=== PATIENT | female | born 1960 | race Two or more races ===

== ENCOUNTER → 2017-08-29 10:18 | Outpatient (CLI) | payer MEDICAID, SELFPAY ==
--- NOTE | 2017-08-29 10:21 | NM_ITS ---
HEPATOBILIARY SCAN WITH FATTY MEAL/ENSURE ORDERING PHYSICIAN : Cirilo Carbajal MD PATIENT AGE: 57 years GENDER: Female HISTORY: Right upper quadrant pain and nausea Following 8.02 millicuries Tc Choletec, images of the RUQ were obtained. There is prompt uptake of radionuclide by the liver which is grossly unremarkable. Activity seen outlining common duct with Activity activity throughout duodenum into small bowel evident.. This initial portion of the study is normal.. The patient then was given CCK IV total of 1.7 MCG via infusion pump over 30 minutes. The gallbladder was allowed to fill imaging over 30 as well... The obtain data was analyzed and reveals a 4% gallbladder ejection fraction (normal greater than 50%; borderline 35-50%). Severely low abnormal ejection fraction suggesting cholecystitis, & biliary dyskinesia. Visual inspection supports abnormal low ejection fraction . IMPRESSION: Abnormal functioning gallbladder 4% % gallbladder ejection fraction by computer analysis.. Severe decreased ejection fraction compatible with cholecystitis,/ biliary dyskinesia Patient experienced Moderate pain and spasms with CCK administration
== END ==
PROVIDERS: Family Provider Nurse Practitioner; PCP Nurse Practitioner; Visit Provider Surgery
DX: R10.11 Right upper quadrant pain (principal)
CPT/HCPCS: 78227; A9537; J2805

== ENCOUNTER → 2017-09-05 10:15 | Outpatient (CLI) | payer MEDICAID, SELFPAY ==
[2017-09-05 10:50] LABS: Basophils % 0.6 % (0.1-2.0); Eosinophils # 0.2 K/mm3 (0.0-0.4); Eosinophils % 2.4 % (0.1-12.0); Hematocrit 40.3 % (37.0-47.0); Hemoglobin 13.1 g/dL (12.2-16.2); Lymphocytes # 2.4 K/mm3 (0.7-4.5); Lymphocytes % 38.2 K/mm3 (10-50); Mean Corpuscular HGB Conc 32.6 g/dL (31.8-35.4); Mean Corpuscular Hemoglobin 27.2 pg (27.0-31.2); Mean Corpuscular Volume 83.6 fl (81-99); Mean Platelet Volume 6.8 fl (7.4-10.4); Monocytes # 0.3 K/mm3 (0.1-1.0); Monocytes % 4.6 % (1.7-9.3); Neutrophils # 3.5 K/mm3 (1.8-7.8); Neutrophils % 54.1 % (37.0-80.0); Platelet Count 323 K/mm3 (142-424); Red Blood Count 4.82 M/mm3 (4.20-5.40); Red Cell Distribution Width 13.4 % (11.5-17.5); White Blood Count 6.4 K/mm3 (4.8-10.8)
[2017-09-05 11:37] LABS: Alanine Aminotransferase 30 U/L (12-78); Albumin Level 3.9 gm/dL (3.4-5.0); Albumin/Globulin Ratio 1.1 (1.1-1.8); Alkaline Phosphatase 72 U/L (46-116); Anion Gap 11.7 mEq/L (5-15); Aspartate Amino Transferase 25 U/L (15-37); Bilirubin,Total 0.5 mg/dL (0.2-1.0); Blood Urea Nitrogen 10 mg/dL (7-18); Calcium 9.2 mg/dL (8.5-10.1); Carbon Dioxide 31 mmol/L (21.0-32.0); Chloride 107 mmol/L (98-107); Creatinine,Serum 0.77 mg/dL (0.55-1.02); Estimated Glomerular Filt Rate 77 ml/min (>60); GFR (African American) 93 ML/MIN (>60); Globulin 3.4 gm/dl (1.3-3.2); Glucose 99 mg/dL (74-106); Potassium 4.7 mmoL/L (3.5-5.1); Sodium 145 mmol/L (136-145); Total Protein,Serum 7.3 gm/dL (6.4-8.2)
== END ==
PROVIDERS: PCP Surgery; Visit Provider Surgery
DX: K81.1 Chronic cholecystitis (principal); Z01.818 Encounter for other preprocedural examination
CPT/HCPCS: 36415; 80053; 85025

== ENCOUNTER 2017-09-07 05:58 | Day surgery (SDC) | payer MEDICAID, SELFPAY ==
[2017-09-05 11:08] VITALS: BMI 33.8
[2017-09-07] VITALS (17 sets, daily range): BP systolic 116–191; BP diastolic 68–100; PULSE 56–98; RESP 16–18; TEMP 36.1–36.7; O2SAT 94–100
--- NOTE | 2017-09-07 07:25 | P.PN_ITS ---
[facility] Anesthesia Checklist - Patient Identification Patient Identification: Arm Band, Family - Structural Data Admitted From: Home Planned Operative Procedure/s: lap choly Consent for Planned Operative Procedure(s) Verified: Yes Verified Documents: Surgical Consent - Chart Verification Results Verified: CBC, BMP - Additional verifications Patient : No Anesthesia Reactions: No Hx Blood Transfusions: No Blood Transfusion Reaction: No Cephalosporin Allergy: No Previous Colonoscopy: No - Cardiovascular Assessment Heart Sounds: S1 & S2 Pulse Strength: Baseline Pulse Rhythm: Regular Peripheral Edema: No - Airway Assessment C-Spine Mobility Assessed: Yes TMJ Mobility Assessed: Yes Dentition: Good Dentition - Neurological Assessment Level of Consciousness: Awake, Alert, Appropriate Hx Seizures: No Numbness or tingling in extremities: No - Genitourinary Assessment 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 - Anesthesia Plan Anesthesia Risk discussed: Yes Anesthesia Plan: Verified ASA Class: II Anesthesia Type: General [facility] Anesthesia HX I have reviewed the patient's past medical history: Yes Medical History: Reports:: Gall Bladder Disease, Hypertension Denies:: Cancer, Diabetes Mellitus Type 1, Diabetes Mellitus Type 2, MRSA, Seizures Other Medical History: Denies: Blood Transfusion Reaction Other Surgeries: Yes: Hysterectomy-Total, Hysterectomy-Partial Amputation: No Fractures: No *Family Hx:: Cancer, Coronary Artery Disease, Diabetes, Heart Attack, Hypertension
--- NOTE | 2017-09-07 08:39 | HMH.OPNOTE ---
Date of procedure: 09/07/17 Pre-op Diagnosis:: Chronic cholecystitis Post-op diagnosis:: same Procedure performed:: Laparoscopic cholecystectomy Surgeon:: Cirilo Carbajal MD DO ALL OPERATOR:: Jamie Duong Anesthesia: GETA Estimated blood loss (mL): 25 Clinical Note:: Patient is a 57-year-old female who states no Pashto. She was originally sent for surgical consultation for possible gallbladder. Patient had been having some right lower abdominal pain and underwent CT scan which was suggestive of gallstones. She had gallbladder ultrasound which revealed no gallstones but was sent for surgical consultation. History is been difficult to obtain however when she was seen for surgical consultation at that time she was complaining of pain in the right upper quadrant. It was characterized as somewhat colicky and worse postprandially. I had her undergo HIDA scan which revealed an ejection fraction of 4% with CCK. The options were discussed and she wished to pursue cholecystectomy. Operative findings:: She had a distended slightly thickened gallbladder with omental adhesions to the gallbladder Operative note:: Consent was obtained and patient was taken to the operating room. She was given preoperative intravenous antibiotics. She was positioned in a supine position. General anesthesia was induced via endotracheal tube. Abdomen was prepped and draped in the standard surgical fashion. Subumbilical skin incision was made and while performing abdominal wall lift Veress needle was inserted. CO2 pneumoperitoneum was achieved 15 mmHg. 10/11 mm optical trocar was inserted at the umbilicus. Intraperitoneal contents were visualized. She was positioned in reverse Trendelenburg with left side down. A couple of 5 mm trochars were inserted in the right upper abdomen. 10 mm trocar was inserted in the epigastrium. Gallbladder was grasped and retracted anteriorly over the dome of the liver. There were omental adhesions to the gallbladder and these were taken down using blunt dissection. Infundibulum/Espinal's pouch of the gallbladder was retracted anteriorly and laterally. There is fatty infiltration around the gallbladder. Blunt dissection was carried out dissecting free the cystic duct and cystic artery. Cystic duct was multiply clipped and then divided. Cystic artery was carefully coagulated with a's ultrasonic harmonic sarah and then divided. Gallbladder was dissected free from the liver in a retrograde fashion using Alexandru ultrasonic harmonic sarah. Gallbladder was placed within an Endo Catch retrieval device and removed from the peritoneal cavity via the umbilical trocar site. Gallbladder fossa was irrigated and aspirated until clear. Trochars were removed as CO2 pneumoperitoneum was evacuated. Fascia at the umbilicus was closed with a couple of 0 Vicryl sutures. Local anesthetic was infiltrated into all incisions. Skin incisions were closed with 4-0 Monocryl subcuticular fashion. Steri-Strips and clean dry sterile dressings were applied. Condition: stable Disposition: PACU Specimens:: Gallbladder and contents Complications:: None
--- NOTE | 2017-09-07 08:50 | HMH.ANESI ---
[facility] Anesthesia Record Part I Intake, IV Amount: 650 Estimated blood loss (mL): 10 Urine output (mL): 0 Blood Products used (#): none Blood Pressure: 158/94 SaO2: 96 Pulse Rate: 98 Respiratory Rate: 18 Temperature: 97.0 F Patient is:: Drowsy, Nasal O2 Stable to PACU at:: 08:50
--- NOTE | 2017-09-07 08:52 | P.PN_ITS ---
[facility] Anesthesia Record Part II Discharge Time: 09:20 Destination: Surgical Day Care (OP Surgery) PACU nurse assessment reviewed?: Yes Patient Condition:: Good Anesthesia Complications:: None
--- NOTE | 2017-09-07 09:09 | PC.NURSE ---
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 WILL USE [place] TRANSLATION HOTLINE FOR ASSIST WITH CARE UPON PT AWAKENING.
--- NOTE | 2017-09-07 10:19 | PC.NURSE ---
0905-pt's at bedside
--- NOTE | 2017-09-07 10:23 | PC.NURSE ---
0918-Called Greek Translation Hotline at this time to assist with care. Pt reports c/o nausea and pain to abdomen. Pt rates pain 04/17. Educated pt on medications to be given for pain and nausea per IV via hotline translation. Pt verbalized understanding. 0920-Phenergan 6.25mg IVPB in NS 25ml's administered to pt for nausea per MAR. Toradol 30mg IM to right thigh administered per OCT for pain. VSS. remains at bedside.
--- NOTE | 2017-09-07 13:36 | PC.NURSE ---
5540-LM-QIHQFSNP PAIN USING PAIN RATING SCALE TRANSLATED IN TAIWANESE. PT CONTINUES TO RATE PAIN 9/10 TO ABD. PT REPORTS NAUSEA IMPROVING AND IS EATING FEW ICE CHIPS W/OUT DIFFICULTY. MEDICATED PT PER OLIVIER W/DILAUDID 0.5MG IV FOR PAIN. VSS.
--- NOTE | 2017-09-07 13:39 | PC.NURSE ---
0937-PT REPORTS PAIN REMAINS 9/10 TO ABDOMEN VIA [place] TRANSLATION HOTLINE. MEDICATED PER MAR W/DILAUDID 0.5MG IV. VSS. PT EDUCATED ON PAIN MEDICATIONS GIVEN VIA HOTLINE. PT REPORTS DISCOMFORT TO THROAT-EATING ICE CHIPS W/OUT DIFFICULTY AND REPORTS SOME RELIEF. PT DENIES NAUSEA. 2L/NC RE-APPLIED AT THIS TIME R/T DECREASE IN O2 SATS. 0940-PT REPORTS PAIN IS EASING AND RATES 8/10 VIA PAIN RATING SCALE THAT IS TRANSLATED IN [place] FOR PT. AT BEDSIDE. PT CONTINUES TO EAT ICE CHIPS W/OUT DIFFICULTY. O2 SATS STABLE ON 2L/NC. INCREASED DROWSINESS NOTED AFTER BEING MEDICATED FOR PAIN AND NAUSEA.
--- NOTE | 2017-09-07 15:41 | PC.NURSE ---
0920 CONTINUED.... RR-16, RESPIRATIONS EVEN/UNLABORED
--- NOTE | 2017-09-07 15:43 | PC.NURSE ---
0927 CONTINUED.... RR-16 WITH ADMINISTRATION OF PAIN MEDICATION. ENCOURAGING DEEP BREATHING/COUGH.
--- NOTE | 2017-09-07 15:44 | PC.NURSE ---
0937 CONTINUED.... RR-16 WITH ADMINISTRATION OF PAIN MEDICATION. RESP EVEN/UNLABORED.
--- NOTE | 2017-09-07 15:47 | PC.NURSE ---
9532-SPOKE WITH TRANSLATION HOTLINE AT THIS TIME, PT REPORTS PAIN IS EASING AND NOW RATES 6/10 TO ABD. PT DENIES NAUSEA. REMAINS AT BEDSIDE. TRANSLATION HOTLINE EDUCATED PT THAT SHE WOULD BE TRANSPORTED TO POST OP SHORTLY AND BE PREPARED TO DISCHARGE HOME. ALSO EDUCATED PT THROUGH TRANSLATION HOTLINE TO CONTINUE TO DEEP BREATHE AND COUGH AND TO AMBULATE SOON TOLERATED TO ASSIST WITH ELIMINATING PAIN THAT MAY BE CAUSED BY GAS. O2 TITRATED OFF, SATS STABLE. PT CONTINUES TO EAT ICE CHIPS W/OUT DIFFICULTY AND REPORTS RELIEF TO THROAT DISCOMFORT. PT APPEARS TO BE RESTING EASIER AND DOZING OFF PERIODICALLY, EASILY AROUSABLE.
--- NOTE | 2017-09-07 15:53 | PC.NURSE ---
0953-PT CONTINUES TO APPEAR TO BE RESTING EASY AT THIS TIME AND PERIODICALLY DOZING OFF. AT BEDSIDE. DETAILED REPORT CALLED TO ANJANA NAVARRETE. 0988-PT TRANSPORTED TO POST OP VIA STRETCHER W/RAILS UP AND LEFT IN CARE OF ANJANA NAVARRETE WITH BED LOCKED IN LOWEST POSITION. VSS. FAMILY AT BEDSIDE. PT STABLE.
== END 2017-09-07 12:11 | disposition home or self-care (01) ==
LOC: OR 05:59
PROVIDERS: Family Provider Nurse Practitioner; PCP Nurse Practitioner; Visit Provider Surgery
PROC: 0FT44ZZ Resection of Gallbladder, Percutaneous Endoscopic Approach (ICD-10-PCS; CPT 47562; principal; 2017-09-07 07:30)
DX: K81.1 Chronic cholecystitis (principal)
CPT/HCPCS: 47562; 96374; J0131; J2405; J2710

== ENCOUNTER 2017-09-08 19:15 | Observation (INO) | payer MEDICAID, SELFPAY ==
[2017-09-08 19:24] VITALS: BP 142/66; PULSE 87; RESP 20; TEMP 36.4; O2SAT 100; BMI 33.8
[2017-09-08 20:03] VITALS: BP 134/56; PULSE 79; RESP 20; O2SAT 98
[2017-09-08 20:30] LABS: Adenovirus F 40/41, stool Not Detected (NotDetected); Astrovirus Not Detected (NotDetected); Campylobacter Not Detected (NotDetected); Clostridium Difficile A/B, PCR Not Detected (NotDetected); Cryptosporidium Not Detected (NotDetected); Cyclospora Cayetanesis Not Detected (NotDetected); Entamoeba histolytica Not Detected (NotDetected); Enteroaggregative E coli Not Detected (NotDetected); Enteropathogenic E coli Not Detected (NotDetected); Enterotoxigenic E coli Not Detected (NotDetected); Giardia lamblia Not Detected (NotDetected); Norovirus Not Detected (NotDetected); Plesimonas Shigalloides, PCR Not Detected (NotDetected); Rotavirus A Not Detected (NotDetected); Salmonella, PCR Not Detected (NotDetected); Sapovirus Not Detected (NotDetected); Shiga-like toxin E coli Not Detected (NotDetected); Shigella Enterovasive E coli Not Detected (NotDetected); Vibrio Cholerae Not Detected (NotDetected); Vibrio, PCR Not Detected (NotDetected); Yersinia Entercolitica, PCR Not Detected (NotDetected)
[2017-09-08 20:33] LABS: Microscopic, Urine URINE MICROSCOPIC (MICROSCOPIC)
[2017-09-08 20:37] LABS: Basophils % 0.1 % (0.1-2.0); Eosinophils # 0.2 K/mm3 (0.0-0.4); Eosinophils % 1.3 % (0.1-12.0); Hemoglobin 12.6 g/dL (12.2-16.2); Lymphocytes # 1.7 K/mm3 (0.7-4.5); Mean Corpuscular HGB Conc 32.3 g/dL (31.8-35.4); Mean Corpuscular Hemoglobin 27.2 pg (27.0-31.2); Mean Corpuscular Volume 84.1 fl (81-99); Mean Platelet Volume 7.2 fl (7.4-10.4); Monocytes # 0.2 K/mm3 (0.1-1.0); Monocytes % 1.5 % (1.7-9.3); Neutrophils # 11.2 K/mm3 (1.8-7.8); Neutrophils % 84.1 % (37.0-80.0); Platelet Count 305 K/mm3 (142-424); Red Blood Count 4.64 M/mm3 (4.20-5.40); Red Cell Distribution Width 13.5 % (11.5-17.5); White Blood Count 13.3 K/mm3 (4.8-10.8)
[2017-09-08 20:38] LABS: Appearance,Urine CLEAR (Clear); Bilirubin,Urine Negative (Negative); Blood, Urine Negative (Negative); Color,Urine YELLOW (Yellow); Glucose,Urine (UA) Negative (Negative); Ketones,Urine Negative (Negative); Leukocyte Esterase,Urine Negative (Negative); Nitrate,Urine Negative (Negative); PH,Urine 5.5 (5.0-8.5); Protein,Urine Negative (Negative); Specific Gravity, Urine 1.015 (1.005-1.030); Urobilinogen,Urine 0.2 EU/dl (0.2)
[2017-09-08 20:46] LABS: Bacteria,Urine 1+ /lpf; Hyaline Casts,Urine Occasional #/lpf (0); Mucus,Urine 1+ /lpf
[2017-09-08 20:50] LABS: Alanine Aminotransferase 30 U/L (12-78); Albumin Level 3.7 gm/dL (3.4-5.0); Alkaline Phosphatase 65 U/L (46-116); Anion Gap 11.4 mEq/L (5-15); Aspartate Amino Transferase 26 U/L (15-37); Bilirubin,Total 0.4 mg/dL (0.2-1.0); Blood Urea Nitrogen 12 mg/dL (7-18); Calcium 9.3 mg/dL (8.5-10.1); Carbon Dioxide 29 mmol/L (21.0-32.0); Chloride 104 mmol/L (98-107); Creatinine Clearance Estimated 79 mL/min (0-300); Creatinine,Serum 1.03 mg/dL (0.55-1.02); Estimated Glomerular Filt Rate 55 ml/min (>60); GFR (African American) 67 ML/MIN (>60); Globulin 3.6 gm/dl (1.3-3.2); Glucose 124 mg/dL (74-106); Potassium 4.4 mmoL/L (3.5-5.1); Sodium 140 mmol/L (136-145); Total Protein,Serum 7.3 gm/dL (6.4-8.2)
[2017-09-08 20:59] LABS: Lactic Acid 3.9 mmol/L (0.4-2.0)
--- NOTE | 2017-09-08 21:20 | HMH.EDNVD ---
ED Disposition Clinical Impression: Right upper quadrant abdominal pain, Post-op pain Disposition: Admitted as Observation Condition on Discharge: Good - Critical Care Critical Care Time: No Attestation: On 09/08/17, the high probability of a clinically significant, sudden or life threatening deterioration of the following system(s) required my full and direct attention, intervention and personal management. The time I documented below is in addition to time spent performing reported procedures but includes the following listed in this critical care notation. Medical Decision Making - Medical Records Medical records reviewed: Yes: I reviewed the patient's medical records. Vital Signs: 09/08/17 19:24 09/08/17 20:03 Temperature 97.6 F Temperature Source Oral Pulse Rate [Right Radial] 87 79 Respiratory Rate 20 20 Blood Pressure [Right Arm] 142/66 134/56 Blood Pressure Mean [Right Arm] 91 82 Blood Pressure Source [Right Arm] Automatic Cuff Automatic Cuff Blood Pressure Position [Right Arm] Supine Sitting 02 Sat by Pulse Oximetry 100 98 Oxygen Delivery Method Room Air - Lab Data Lab results reviewed: Yes: I reviewed the patient's lab results. Lab Results 09/08/17 20:24: WBC 13.3 H, RBC 4.64, Hgb 12.6, Hct 39.0, MCV 84.1, MCH 27.2, MCHC 32.3, RDW 13.5, Plt Count 305, MPV 7.2 L, Neut % (Auto) 84.1 H, Lymph % (Auto) 13.0, [place] % (Auto) 1.5 L, Eos % (Auto) 1.3, Baso % (Auto) 0.1, Neut # (Auto) 11.2 H, Lymph # (Auto) 1.7, [place] # (Auto) 0.2, Eos # (Auto) 0.2, Baso # (Auto) 0.0 09/08/17 20:24: Sodium 140, Potassium 4.4, Chloride 104, Carbon Dioxide 29, Anion Gap 11.4, BUN 12, Creatinine 1.03 H, Estimated Creat Clear 79, Estimated GFR 55 L, Est GFR ( Amer) 67, Glucose 124 H, Calcium 9.3, Total Bilirubin 0.4, AST 26, ALT 30, Alkaline Phosphatase 65, Total Protein 7.3, Albumin 3.7, Globulin 3.6 H, Albumin/Globulin Ratio 1.0 L 09/08/17 20:24: Lactic Acid 3.9 H 09/08/17 20:24: Urine Color Yellow, Urine Appearance Clear, Urine pH 5.5, Ur Specific [place] 1.015, Urine Protein Negative, Urine Glucose (UA) Negative, Urine Ketones Negative, Urine Blood Negative, Urine Nitrate Negative, Urine Bilirubin Negative, Urine Urobilinogen 0.2, Ur Leukocyte Esterase Negative, Urine WBC 3-5, Ur Squamous Epith Cells 3-5, Urine Bacteria 1+, Hyaline Casts Occasional, Urine Mucus 1+ Result diagrams: 09/08/17 20:24 09/08/17 20:24 Orders (Tests/Meds): ED MEDICATIONS Discontinued Medications Generic Name Dose Route Start Last Admin Trade Name Freq PRN Reason Stop Dose Admin Sodium Chloride 1,000 mls @ 999 mls/hr 09/08/17 20:15 09/08/17 20:28 Sod Chloride 0.9% 1000ml Bag IV 09/08/17 21:15 999 mls/hr .Q1H1M SHEEBA Administration Ondansetron HCl 4 mg 09/08/17 20:26 09/08/17 20:28 Zofran 4mg/2ml Vial IV 09/08/17 20:27 4 mg ONCE ONE Administration ORDERS Category Date Time Status XR chest portable Stat Exams 09/08/17 21:23 Taken Amylase Stat Lab 09/08/17 21:22 Ordered Diarrhea Panel, PCR Stat Lab 09/08/17 20:24 Received Lipase Stat Lab 09/08/17 21:22 Ordered Troponin I Stat Lab 09/08/17 21:22 Ordered Blood Culture Stat Micro 09/08/17 20:24 Received - Radiology Data #1 Image(s): Chest Image Reviewed: Yes I reviewed the patient's radiology image Preliminary Findings: Normal/NAD - Physician Consults Physician Consulted: marisa Reason -: Admission - Jose Inquiry Pt receiving controlled substance: No Nausea/Vomiting/Diarrhea HPI - General Chief complaint: Abdominal Pain Stated complaint: Post op pain Time Seen by Provider: 09/08/17 21:20 Mode of Arrival: Ambulatory Source of Information: Patient, Spouse, Medical Record Limitations: Physical Limitations Description of Symptoms (Recalled from ER Triage Doc. by RN): Pt reports she had her galbladder removed yeterday and after eating today she was having abd pain, chills and dizziness. pt reports she was constipated so she liliane
--- NOTE | 2017-09-08 21:23 | XR_ITS ---
XR chest portable HISTORY: Pain, epigastric pain ITS.REASON: abd pain ORDERING PHYSICIAN: Cirilo Carbajal MD PATIENT AGE: 57 years COMPARISON: None available FINDINGS: The cardiomediastinal silhouette and pulmonary vascularity are within normal limits. The lungs are clear without infiltrates, suspicious nodules, or pleural effusions. No acute bony abnormalities. IMPRESSION: Negative chest, no acute finding
--- NOTE | 2017-09-08 21:24 | ED_ITS ---
ED Disposition Clinical Impression: Right upper quadrant abdominal pain, Post-op pain Disposition: Admitted as Observation Condition on Discharge: Good - Critical Care Critical Care Time: No Attestation: On 09/08/17, the high probability of a clinically significant, sudden or life threatening deterioration of the following system(s) required my full and direct attention, intervention and personal management. The time I documented below is in addition to time spent performing reported procedures but includes the following listed in this critical care notation. Medical Decision Making - Medical Records Medical records reviewed: Yes: I reviewed the patient's medical records. Vital Signs: 09/08/17 19:24 09/08/17 20:03 Temperature 97.6 F Temperature Source Oral Pulse Rate [Right Radial] 87 79 Respiratory Rate 20 20 Blood Pressure [Right Arm] 142/66 134/56 Blood Pressure Mean [Right Arm] 91 82 Blood Pressure Source [Right Arm] Automatic Cuff Automatic Cuff Blood Pressure Position [Right Arm] Supine Sitting 02 Sat by Pulse Oximetry 100 98 Oxygen Delivery Method Room Air - Lab Data Lab results reviewed: Yes: I reviewed the patient's lab results. Lab Results 09/08/17 20:24: WBC 13.3 H, RBC 4.64, Hgb 12.6, Hct 39.0, MCV 84.1, MCH 27.2, MCHC 32.3, RDW 13.5, Plt Count 305, MPV 7.2 L, Neut % (Auto) 84.1 H, Lymph % ( Auto) 13.0, [place] % (Auto) 1.5 L, Eos % (Auto) 1.3, Baso % (Auto) 0.1, Neut # ( Auto) 11.2 H, Lymph # (Auto) 1.7, [place] # (Auto) 0.2, Eos # (Auto) 0.2, Baso # ( Auto) 0.0 09/08/17 20:24: Sodium 140, Potassium 4.4, Chloride 104, Carbon Dioxide 29, Anion Gap 11.4, BUN 12, Creatinine 1.03 H, Estimated Creat Clear 79, Estimated GFR 55 L, Est GFR ( Amer) 67, Glucose 124 H, Calcium 9.3, Total Bilirubin 0.4, AST 26, ALT 30, Alkaline Phosphatase 65, Total Protein 7.3, Albumin 3.7, Globulin 3.6 H, Albumin/Globulin Ratio 1.0 L 09/08/17 20:24: Lactic Acid 3.9 H 09/08/17 20:24: Urine Color Yellow, Urine Appearance Clear, Urine pH 5.5, Ur Specific [place] 1.015, Urine Protein Negative, Urine Glucose (UA) Negative, Urine Ketones Negative, Urine Blood Negative, Urine Nitrate Negative, Urine Bilirubin Negative, Urine Urobilinogen 0.2, Ur Leukocyte Esterase Negative, Urine WBC 3-5, Ur Squamous Epith Cells 3-5, Urine Bacteria 1+, Hyaline Casts Occasional, Urine Mucus 1+ Result diagrams: 09/08/17 20:24 09/08/17 20:24 Orders (Tests/Meds): ED MEDICATIONS Discontinued Medications Generic Name Dose Route Start Last Admin Trade Name Freq PRN Reason Stop Dose Admin Sodium Chloride 1,000 mls @ 999 mls/hr 09/08/17 20:15 09/08/17 20:28 Sod Chloride 0.9% 1000ml Bag IV 09/08/17 21:15 999 mls/hr .Q1H1M SHEEBA Administration Ondansetron HCl 4 mg 09/08/17 20:26 09/08/17 20:28 Zofran 4mg/2ml Vial IV 09/08/17 20:27 4 mg ONCE ONE Administration ORDERS Category Date Time Status XR chest portable Stat Exams 09/08/17 21:23 Taken Amylase Stat Lab 09/08/17 21:22 Ordered Diarrhea Panel, PCR Stat Lab 09/08/17 20:24 Received Lipase Stat Lab 09/08/17 21:22 Ordered Troponin I Stat Lab 09/08/17 21:22 Ordered Blood Culture Stat Micro 09/08/17 20:24 Received - Radiology Data #1 Image(s): Chest Image Reviewed: Yes I reviewed the patient's radiology image Preliminary Findings: Normal/N
--- NOTE | 2017-09-08 22:21 | PC.NURSE ---
called report to Shyam
[2017-09-08 23:13] LABS: Amylase 113 U/L (25-125); Lipase 199 u/L (73-393); Troponin I < 0.02 ng/ml (0.00-0.06)
[2017-09-08 23:23] VITALS: BP 135/74; PULSE 83; RESP 16; TEMP 37.1; O2SAT 96; BMI 33.8
--- NOTE | 2017-09-09 | PC.NURSE ---
pt presents 4 abdominal incisions sites. covered with tegaderm, some serosanguinous drainages on upper quadrants dressings. dried bloody drainage to umbilical dressing.
[2017-09-09 00:20] LABS: Reflex Lactic Add Lactic Reflex
[2017-09-09 00:37] LABS: Lactic Acid Follow Up (RFLX 1) 1.8 (0.4-2.0)
[2017-09-09 04:07] VITALS: BP 122/70; PULSE 70; RESP 16; TEMP 36.8; O2SAT 96
--- NOTE | 2017-09-09 04:11 | PC.NURSE ---
pt remains stable, pain free at this time, denies needs for pain medicine. get up to bathroom with only stand by assist. otherwise independent. no needs voiced. vss.
--- NOTE | 2017-09-09 06:33 | PC.NURSE ---
pt slept well, denies pain. no needs voiced
--- NOTE | 2017-09-09 07:00 | PC.NURSE ---
RECEIVED REPORT FROM Ranulfo SANCHEZ RN
[2017-09-09 07:08] LABS: Alanine Aminotransferase 34 U/L (12-78); Alkaline Phosphatase 55 U/L (46-116); Anion Gap 10.8 mEq/L (5-15); Aspartate Amino Transferase 34 U/L (15-37); Bilirubin,Total 0.3 mg/dL (0.2-1.0); Blood Urea Nitrogen 10 mg/dL (7-18); Calcium 8.4 mg/dL (8.5-10.1); Carbon Dioxide 30 mmol/L (21.0-32.0); Chloride 108 mmol/L (98-107); Creatinine Clearance Estimated 89 mL/min (0-300); Creatinine,Serum 0.91 mg/dL (0.55-1.02); Estimated Glomerular Filt Rate 63 ml/min (>60); GFR (African American) 77 ML/MIN (>60); Globulin 3.1 gm/dl (1.3-3.2); Glucose 96 mg/dL (74-106); Potassium 4.8 mmoL/L (3.5-5.1); Sodium 144 mmol/L (136-145); Total Protein,Serum 6.1 gm/dL (6.4-8.2)
[2017-09-09 07:27] LABS: Basophils % 0.3 % (0.1-2.0); Eosinophils # 0.1 K/mm3 (0.0-0.4); Eosinophils % 0.9 % (0.1-12.0); Hematocrit 35.1 % (37.0-47.0); Lymphocytes # 2.1 K/mm3 (0.7-4.5); Lymphocytes % 24.7 K/mm3 (10-50); Mean Corpuscular HGB Conc 31.6 g/dL (31.8-35.4); Mean Corpuscular Hemoglobin 26.7 pg (27.0-31.2); Mean Corpuscular Volume 84.4 fl (81-99); Monocytes # 0.3 K/mm3 (0.1-1.0); Neutrophils % 70.1 % (37.0-80.0); Platelet Count 267 K/mm3 (142-424); Red Blood Count 4.16 M/mm3 (4.20-5.40); Red Cell Distribution Width 13.7 % (11.5-17.5); White Blood Count 8.6 K/mm3 (4.8-10.8)
--- NOTE | 2017-09-09 07:30 | PC.NURSE ---
DR CAMPBELL AT BEDSIDE FOR MORNING ROUNDS.
--- NOTE | 2017-09-09 07:34 | HMH.GSHP ---
HPI HPI: Patient is a 57-year-old female who speaks no Latvian. I had seen her in the office as a consultation for possible gallbladder. She had presented some time ago with right-sided abdominal pain. She had a CT scan done which was suggestive of possible gallstones. However, ultrasound revealed no evidence of any gallstones. When I saw her in the office she was complaining of what she described as colicky right upper quadrant pain. She underwent a HIDA scan which revealed an ejection fraction of 4% with CCK. She presented back to the office and had signs and symptoms suggestive of gallbladder disease. The options were discussed with her and she wished to pursue cholecystectomy which was done on 09/07/17. This was uneventful and she was discharged home. She had some postoperative pain at home and bloating. She had eaten yesterday and felt somewhat bloated and drank some prune juice. She had cramping pain and diarrhea as well as nausea. She presented to the emergency department yesterday evening. Chest x-ray was unremarkable. She had a mild leukocytosis. She had an above normal lactate. She was admitted for inpatient observation. This morning patient states that she feels somewhat better. She complains mainly of tenderness to the right of the umbilicus. [facility] History I have reviewed the patient's past medical history: Yes Medical History: Reports:: Gall Bladder Disease, Hypertension Denies:: Diabetes Mellitus Type 1, Diabetes Mellitus Type 2, Seizures Other Medical History: Denies: Blood Transfusion Reaction Other Surgeries: Yes: Hysterectomy-Total, Hysterectomy-Partial - *Social History Educational Level: Attended Grade School Smoking Status: Never smoker Alcohol Intake: never Alcohol Intake Frequency:: other Substance Use Type: denies use Occupational Status: unemployed Housing: house Household Members: spouse - Psychiatric History Expresses thoughts of harming self/others: None Suicide Plan Description: No Plan *Family Hx:: Cancer, Coronary Artery Disease, Diabetes, Heart Attack, Hypertension Review of Systems - Review of Systems Review of systems:: unable to obtain - *Neurologic Denies seizure-like activity Meds Home Medications Medication Instructions Recorded Confirmed Type Miscellaneous [Unknown Home 0 each NOTAPPLIC CONSULT PHARMACY 09/07/17 09/08/17 History Medication] Miscellaneous [Unknown Home 1 tab PO NEEDED PRN 09/07/17 09/08/17 History Medication] Naproxen [Naprosyn 500mg tablet] 500 mg PO BID 09/07/17 09/08/17 History Allergies Allergy/AdvReac Type Severity Reaction Status Date / Time No Known Allergies Allergy Verified 09/05/17 09:47 Exam Vital signs and Labs for Last 24 Hours: Temp Pulse Resp BP Pulse Ox 98.3 F 70 16 122/70 96 09/09/17 04:07 09/09/17 04:07 09/09/17 04:07 09/09/17 04:07 09/09/17 04:07 Laboratory Results - last 24 hr 09/09/17 00:10: Lactic Acid Fup @ 4Hr 1.8 09/09/17 06:40: WBC 8.6 D, RBC 4.16 L, Hct 35.1 L, MCV 84.4, MCH 26.7 L, MCHC 31.6 L, RDW 13.7, Plt Count 267, MPV 7.0 L, Neut % (Auto) 70.1, Lymph % (Auto) 24.7, [place] % (Auto) 4.0, Eos % (Auto) 0.9, Baso % (Auto) 0.3, Neut # (Auto) 6.0, Lymph # (Auto) 2.1, [place] # (Auto) 0.3, Eos # (Auto) 0.1, Baso # (Auto) 0.0 09/09/17 06:40: Sodium 144, Potassium 4.8, Chloride 108 H, Carbon Dioxide 30, Anion Gap 10.8, BUN 10, Creatinine 0.91, Estimated Creat Clear 89, Estimated GFR 63, Est GFR ( Amer) 77, Glucose 96 D, Calcium 8.4 L, Total Bilirubin 0.3, AST 34 D, ALT 34, Alkaline Phosphatase 55, Total Protein 6.1 L, Albumin 3.0 L D, Globulin 3.1, Albumin/Globulin Ratio 1.0 L I & O for Last 24 hours: Intake & Output 09/06/17 09/07/17 09/08/17 09/09/17 11:59 11:59 11:59 11:59 Weight 185 lb - Constitutional no acute distress - *Routine Respiratory Exam Present: CTA bilaterally - *Routine Cardiovascular Exam Present: RRR, Normal S1, Normal S2 - *Ro
--- NOTE | 2017-09-09 07:37 | P.HP_ITS ---
HPI HPI: Patient is a 57-year-old female who speaks no Persian. I had seen her in the office as a consultation for possible gallbladder. She had presented some time ago with right-sided abdominal pain. She had a CT scan done which was suggestive of possible gallstones. However, ultrasound revealed no evidence of any gallstones. When I saw her in the office she was complaining of what she described as colicky right upper quadrant pain. She underwent a HIDA scan which revealed an ejection fraction of 4% with CCK. She presented back to the office and had signs and symptoms suggestive of gallbladder disease. The options were discussed with her and she wished to pursue cholecystectomy which was done on 09/07/17. This was uneventful and she was discharged home. She had some postoperative pain at home and bloating. She had eaten yesterday and felt somewhat bloated and drank some prune juice. She had cramping pain and diarrhea as well as nausea. She presented to the emergency department yesterday evening. Chest x-ray was unremarkable. She had a mild leukocytosis. She had an above normal lactate. She was admitted for inpatient observation. This morning patient states that she feels somewhat better. She complains mainly of tenderness to the right of the umbilicus. [facility] History I have reviewed the patient's past medical history: Yes Medical History: Reports:: Gall Bladder Disease, Hypertension Denies:: Diabetes Mellitus Type 1, Diabetes Mellitus Type 2, Seizures Other Medical History: Denies: Blood Transfusion Reaction Other Surgeries: Yes: Hysterectomy-Total, Hysterectomy-Partial - *Social History Educational Level: Attended Grade School Smoking Status: Never smoker Alcohol Intake: never Alcohol Intake Frequency:: other Substance Use Type: denies use Occupational Status: unemployed Housing: house Household Members: spouse - Psychiatric History Expresses thoughts of harming self/others: None Suicide Plan Description: No Plan *Family Hx:: Cancer, Coronary Artery Disease, Diabetes, Heart Attack, Hypertension Review of Systems - Review of Systems Review of systems:: unable to obtain - *Neurologic Denies seizure-like activity Meds Home Medications Medication Instructions Recorded Confirmed Type Miscellaneous [Unknown Home 0 each NOTAPPLIC CONSULT PHARMACY 09/07/17 09/08/17 History Medication] Miscellaneous [Unknown Home 1 tab PO NEEDED PRN 09/07/17 09/08/17 History Medication] Naproxen [Naprosyn 500mg tablet] 500 mg PO BID 09/07/17 09/08/17 History Allergies Allergy/AdvReac Type Severity Reaction Status Date / Time No Known Allergies Allergy Verified 09/05/17 09:47 Exam Vital signs and Labs for Last 24 Hours: Temp Pulse Resp BP Pulse Ox 98.3 F 70 16 122/70 96 09/09/17 04:07 09/09/17 04:07 09/09/17 04:07 09/09/17 04:07 09/09/17 04:07 Laboratory Results - last 24 hr 09/09/17 00:10: Lactic Acid Fup @ 4Hr 1.8 09/09/17 06:40: WBC 8.6 D, RBC 4.16 L, Hct 35.1 L, MCV 84.4, MCH 26.7 L, MCHC 31.6 L, RDW 13.7, Plt Count 267, MPV 7.0 L, Neut % (Auto) 70.1, Lymph % (Auto) 24.7, [place] % (Auto) 4.0, Eos % (Auto) 0.9, Baso % (Auto) 0.3, Neut # (Auto) 6.0 , Lymph # (Auto) 2.1, [place] # (Auto) 0.3, Eos # (Auto) 0.1, Baso # (Auto) 0.0 09/09/17 06:40: Sodium 144, Potassium 4.8, Chloride 108 H, Carbon Dioxide 30, Anion Gap 10.8, BUN 10, Creatinine 0.91, Estimated Creat Clear 89, Estimated GFR 63, Est GFR ( Amer) 77, Glucose 96 D, Calcium 8.4 L, Total
[2017-09-09 07:43] LABS: Hemoglobin 11.1 g/dL (12.2-16.2)
--- NOTE | 2017-09-09 07:51 | P.CONPHA_ITS ---
[facility] Pharmacy VTE Monitoring - Patient Demographics Admission date: 09/09/17 Report Date: 09/09/17 Time: 07:50 Allergies/Adverse Reactions: Patient Allergies No Known Allergies Allergy (Verified 09/05/17 09:47) Height: 1.57 m Weight: 83.915 kg Patient Problems: Current Active Problems Post-op pain (Acute) Right upper quadrant abdominal pain (Acute) - VTE Risk Labs: VTE Related Lab Results Hgb 11.1 g/dL (12.2-16.2) L D 09/09/17 06:40 Hct 35.1 % (37.0-47.0) L 09/09/17 06:40 Plt Count 267 K/mm3 (142-424) 09/09/17 06:40 BUN 10 mg/dL (7-18) 09/09/17 06:40 Creatinine 0.91 mg/dL (0.55-1.02) 09/09/17 06:40 Estimated Creat Clear 89 mL/min (0-300) 09/09/17 06:40 - Prophylaxis VTE Prophylaxis Ordered?: Yes Types of VTE Prophylaxis: TEDS Knee High Location of Applied Device: Bilateral Lower Extremeties - VTE Diagnosis Confirmed Treatment or plan recommended: Continue Current Treatment
[2017-09-09 08:27] VITALS: BP 133/72; PULSE 63; RESP 16; TEMP 36.8; O2SAT 95
--- NOTE | 2017-09-09 08:27 | PC.NURSE ---
PT HAS 4 ABD LAP SITES FROM GALLBLADDER SX ON 09/07/2017. ALL 4 LAP SITE DRESSINGS INTACT. OLD BLOODY DRAINAGE NOTED TO UMBILICUS. SMALL AMOUNT OF OLD SERO SANG DRAINAGE NOTED TO 3 UPPER ABD SITES.
--- NOTE | 2017-09-09 08:27 | PC.NURSE ---
PT RESTING IN BED, PAIN MEDS GIVEN PER MAR. NO OTHER NEEDS VOICED. CALL LIGHT IN REACH. FAMILY MEMBER AT BEDSIDE.
--- NOTE | 2017-09-09 08:46 | PC.NURSE ---
DR CAMPBELL CALLED REPORT GIVEN. PT HAS FULL LIQUID DIET ORDERED FOR LUNCH TODAY. PT WANTING TO SEE IF SHE CAN HAVE SOMETHING TO EAT NOW. ORDERS RECEIVED PT MAY HAVE FULL LIQUID TRAY FOR BREAKFAST. R/V
--- NOTE | 2017-09-09 09:17 | PC.NURSE ---
PT RESTING IN BED. PT REPORTS GETTING UP TO BATHROOM, PT STATES SHE HAD SMALL BM AND URINATED WITHOUT DIFFICULTY. NO NEEDS VOICED. CALL LIGHT IN REACH. FAMILY MEMBER REMAINS AT BEDSIDE.
--- NOTE | 2017-09-09 10:20 | PC.NURSE ---
PT RESTING IN BED. VISITOR AT BEDSIDE. NO NEEDS VOICED. DENIES ANY PAIN. CALL LIGHT IN REACH.
--- NOTE | 2017-09-09 11:00 | PC.NURSE ---
PT REPORTS CRAMPING IN LEFT SHOULDER. WARM BLANKET APPLIED TO SHOULDER. NO OTHER NEEDS VOICED.
--- NOTE | 2017-09-09 11:25 | PC.NURSE ---
PT SLEEPING, RESP EASY AND UNLABORED. FAMILY MEMBER AT BEDSIDE. CALL LIGHT IN REACH.
[2017-09-09 12:15] VITALS: BP 141/77; PULSE 68; RESP 16; TEMP 37.1; O2SAT 95
--- NOTE | 2017-09-09 12:15 | PC.NURSE ---
PT SITTING UP IN BED, LUNCH TRAY TAKEN TO PT. NO OTHER NEEDS VOICED. FAMILY MEMBER AT BEDSIDE.
--- NOTE | 2017-09-09 13:18 | PC.NURSE ---
PT SLEEPING, REPS REMAINS EASY AND UNLABORED. CALL LIGHT IN REACH.
--- NOTE | 2017-09-09 14:28 | PC.NURSE ---
PT HAS BEEN UP TO BATHROOM, NOW SITTING UP IN CHAIR. SCHEDULED TORADOL GIVEN AT THIS TIME. TRANSLATION LINE USED TO GO OVER NEW MEDICATION AND SIDE EFFECTS. PT V/U.
--- NOTE | 2017-09-09 15:00 | PC.NURSE ---
PT DECLINED SHOWER AND LINEN CHANGE AT THIS TIME.
--- NOTE | 2017-09-09 15:15 | PC.NURSE ---
PT HAS 4 ABD LAP SITES. OLD DRESSINGS REMOVED AT THIS TIME. STERI-STRIPS REMAINS IN PLACE. INCISION CLEANED WITH STERILE WATER. NO DRAINAGE NOTED. PT TOLERATED WELL. NO NEEDS VOICED. PT DENIES ANY PAIN.
--- NOTE | 2017-09-09 15:17 | HMH.GSPN ---
Subjective Patient reports: feels better, pain is less (Patient feels much better this afternoon.) Exam Vital signs and Labs for Last 24 Hours: Temp Pulse Resp BP Pulse Ox 98.8 F 68 16 141/77 95 09/09/17 12:15 09/09/17 12:15 09/09/17 12:15 09/09/17 12:15 09/09/17 12:15 Laboratory Results - last 24 hr 09/09/17 00:10: Lactic Acid Fup @ 4Hr 1.8 09/09/17 06:40: WBC 8.6 D, RBC 4.16 L, Hgb 11.1 L D, Hct 35.1 L, MCV 84.4, MCH 26.7 L, MCHC 31.6 L, RDW 13.7, Plt Count 267, MPV 7.0 L, Neut % (Auto) 70.1, Lymph % (Auto) 24.7, [place] % (Auto) 4.0, Eos % (Auto) 0.9, Baso % (Auto) 0.3, Neut # (Auto) 6.0, Lymph # (Auto) 2.1, [place] # (Auto) 0.3, Eos # (Auto) 0.1, Baso # (Auto) 0.0 09/09/17 06:40: Sodium 144, Potassium 4.8, Chloride 108 H, Carbon Dioxide 30, Anion Gap 10.8, BUN 10, Creatinine 0.91, Estimated Creat Clear 89, Estimated GFR 63, Est GFR ( Amer) 77, Glucose 96 D, Calcium 8.4 L, Total Bilirubin 0.3, AST 34 D, ALT 34, Alkaline Phosphatase 55, Total Protein 6.1 L, Albumin 3.0 L D, Globulin 3.1, Albumin/Globulin Ratio 1.0 L I & O for Last 24 hours: Intake & Output 09/07/17 09/08/17 09/09/17 09/10/17 11:59 11:59 11:59 11:59 Weight 185 lb - *Routine Abdominal Exam Present: soft. Absent: tenderness Progress Note: A&P (1) Post-op pain Status: Acute Current Visit: Yes - Time Spent With Patient less than 15 minutes (Laboratory studies had normalized. Patient has tolerated full liquid diet today without difficulty and her pain has resolved. DC home)
--- NOTE | 2017-09-09 15:20 | HMH.DCSUM ---
General - General Admission date: 09/09/17 Discharge date: 09/09/17 HPI HPI: Patient is a 57-year-old female who speaks no Georgian. I had seen her in the office as a consultation for possible gallbladder. She had presented some time ago with right-sided abdominal pain. She had a CT scan done which was suggestive of possible gallstones. However, ultrasound revealed no evidence of any gallstones. When I saw her in the office she was complaining of what she described as colicky right upper quadrant pain. She underwent a HIDA scan which revealed an ejection fraction of 4% with CCK. She presented back to the office and had signs and symptoms suggestive of gallbladder disease. The options were discussed with her and she wished to pursue cholecystectomy which was done on 09/07/17. This was uneventful and she was discharged home. She had some postoperative pain at home and bloating. She had eaten yesterday and felt somewhat bloated and drank some prune juice. She had cramping pain and diarrhea as well as nausea. She presented to the emergency department yesterday evening. Chest x-ray was unremarkable. She had a mild leukocytosis. She had an above normal lactate. She was admitted for inpatient observation. This morning patient states that she feels somewhat better. She complains mainly of tenderness to the right of the umbilicus. Objective Vital signs: Temp Pulse Resp BP Pulse Ox 98.8 F 68 16 141/77 95 09/09/17 12:15 09/09/17 12:15 09/09/17 12:15 09/09/17 12:15 09/09/17 12:15 mild distress - *Routine Abdominal Exam Present: soft Hospital Course Hospital Course: Patient was admitted. Several hours after admission she underwent repeat lactate which had normalized. The following morning her laboratory studies including renal function and mild leukocytosis had normalized. She was given a full liquid diet which she tolerated without difficulty. She was given some Toradol for the abdominal discomfort. In the afternoon after admission she felt well. She felt much better and plan was made for discharge at this time. Results Labs on day of discharge: Labs from last 24 hours 09/09/17 09/09/17 09/09/17 06:40 06:40 00:10 WBC 8.6 D RBC 4.16 L Hgb 11.1 L D Hct 35.1 L MCV 84.4 MCH 26.7 L MCHC 31.6 L RDW 13.7 Plt Count 267 MPV 7.0 L Neut % (Auto) 70.1 Lymph % (Auto) 24.7 [place] % (Auto) 4.0 Eos % (Auto) 0.9 Baso % (Auto) 0.3 Neut # (Auto) 6.0 Lymph # (Auto) 2.1 [place] # (Auto) 0.3 Eos # (Auto) 0.1 Baso # (Auto) 0.0 Sodium 144 Potassium 4.8 Chloride 108 H Carbon Dioxide 30 Anion Gap 10.8 BUN 10 Creatinine 0.91 Estimated Creat Clear 89 Estimated GFR 63 Est GFR ( Amer) 77 Glucose 96 D Lactic Acid Fup @ 4Hr 1.8 Calcium 8.4 L Total Bilirubin 0.3 AST 34 D ALT 34 Alkaline Phosphatase 55 Total Protein 6.1 L Albumin 3.0 L D Globulin 3.1 Albumin/Globulin Ratio 1.0 L DS: Diagnosis - Discharge Diagnosis (1) Post-op pain Status: Acute Meds Home Medications Medication Instructions Recorded Confirmed Type Miscellaneous [Unknown Home 0 each NOTAPPLIC CONSULT PHARMACY 09/07/17 09/08/17 History Medication] Miscellaneous [Unknown Home 1 tab PO NEEDED PRN 09/07/17 09/08/17 History Medication] Naproxen [Naprosyn 500mg tablet] 500 mg PO BID 09/07/17 09/08/17 History Allergies Allergy/AdvReac Type Severity Reaction Status Date / Time No Known Allergies Allergy Verified 09/05/17 09:47 Discharge Plan - Patient Discharge Instructions ACTIVITY: No heavy lifting DIET: advance to your usual diet - Follow up Plan Follow up with: Cirilo Carbajal MD [Staff Physician] - Disposition: Home, Self-Nursing Home Medications: Home Medications Medication Instructions Recorded Confirmed Type Miscellaneous [Unknown Ho
--- NOTE | 2017-09-09 15:26 | P.DS_ITS ---
General - General Admission date: 09/09/17 Discharge date: 09/09/17 HPI HPI: Patient is a 57-year-old female who speaks no Kyrgyz. I had seen her in the office as a consultation for possible gallbladder. She had presented some time ago with right-sided abdominal pain. She had a CT scan done which was suggestive of possible gallstones. However, ultrasound revealed no evidence of any gallstones. When I saw her in the office she was complaining of what she described as colicky right upper quadrant pain. She underwent a HIDA scan which revealed an ejection fraction of 4% with CCK. She presented back to the office and had signs and symptoms suggestive of gallbladder disease. The options were discussed with her and she wished to pursue cholecystectomy which was done on 09/07/17. This was uneventful and she was discharged home. She had some postoperative pain at home and bloating. She had eaten yesterday and felt somewhat bloated and drank some prune juice. She had cramping pain and diarrhea as well as nausea. She presented to the emergency department yesterday evening. Chest x-ray was unremarkable. She had a mild leukocytosis. She had an above normal lactate. She was admitted for inpatient observation. This morning patient states that she feels somewhat better. She complains mainly of tenderness to the right of the umbilicus. Objective Vital signs: Temp Pulse Resp BP Pulse Ox 98.8 F 68 16 141/77 95 09/09/17 12:15 09/09/17 12:15 09/09/17 12:15 09/09/17 12:15 09/09/17 12:15 mild distress - *Routine Abdominal Exam Present: soft Hospital Course Hospital Course: Patient was admitted. Several hours after admission she underwent repeat lactate which had normalized. The following morning her laboratory studies including renal function and mild leukocytosis had normalized. She was given a full liquid diet which she tolerated without difficulty. She was given some Toradol for the abdominal discomfort. In the afternoon after admission she felt well. She felt much better and plan was made for discharge at this time. Results Labs on day of discharge: Labs from last 24 hours 09/09/17 09/09/17 09/09/17 06:40 06:40 00:10 WBC 8.6 D RBC 4.16 L Hgb 11.1 L D Hct 35.1 L MCV 84.4 MCH 26.7 L MCHC 31.6 L RDW 13.7 Plt Count 267 MPV 7.0 L Neut % (Auto) 70.1 Lymph % (Auto) 24.7 [place] % (Auto) 4.0 Eos % (Auto) 0.9 Baso % (Auto) 0.3 Neut # (Auto) 6.0 Lymph # (Auto) 2.1 [place] # (Auto) 0.3 Eos # (Auto) 0.1 Baso # (Auto) 0.0 Sodium 144 Potassium 4.8 Chloride 108 H Carbon Dioxide 30 Anion Gap 10.8 BUN 10 Creatinine 0.91 Estimated Creat Clear 89 Estimated GFR 63 Est GFR ( Amer) 77 Glucose 96 D Lactic Acid Fup @ 4Hr 1.8 Calcium 8.4 L Total Bilirubin 0.3 AST 34 D ALT 34 Alkaline Phosphatase 55 Total Protein 6.1 L Albumin 3.0 L D Globulin 3.1 Albumin/Globulin Ratio 1.0 L DS: Diagnosis - Discharge Diagnosis (1) Post-op pain Status: Acute Meds Home Medications Medicatio
[2017-09-09 16:20] VITALS: BP 128/74; PULSE 72; RESP 16; TEMP 36.6; O2SAT 96
--- NOTE | 2017-09-09 16:20 | PC.NURSE ---
PT SITTING UP IN BED. LUNG SOUNDS CLEAR, BOWEL SOUNDS NORMAL X4. PT DENIES ANY PAIN. TRACE EDEMA NOTED TO BLE. VSS. PT HAS 4 ABD LAP SITES WITH STERI -STRIPS IN PLACE. NO DRAINAGE NOTED. CALL LIGHT IN REACH. SAFETY MEASURES IN PLACE PER [facility] PROTOCOL. IV PATENT. S.O. REMAINS AT BEDSIDE. WILL CONTINUE TO MONITOR.
--- NOTE | 2017-09-09 17:00 | PC.NURSE ---
PT SITTING UP IN BED EATING DINNER. NO NEEDS VOICED. CALL LIGHT IN REACH. DENIES ANY PAIN.
--- NOTE | 2017-09-09 18:18 | PC.NURSE ---
Addendum entered by Consuelo Salguero RN 09/09/17 18:21: LATE ENTRY MADE. ACTUAL TEACHING AND DISCHARGE INSTRUCTIONS WAS COMPLETED AT 1740 Original Note: LANGUAGE LINE USED AT THIS TIME TO DISCUSS AND GO OVER DISCHARGE TEACHING/INSTRUCTIONS. HOME MEDS ADDRESSED. FOLLOW UP APPT ALREADY MADE. QUESTIONS ANSWERED. PT V/U.
== END 2017-09-09 17:55 | disposition home or self-care (01) ==
LOC: ER 19:31 → OB 22:22
PROVIDERS: Emergency Medicine; Admitting Provider Surgery; Emergency Provider Emergency Medicine; Family Provider Nurse Practitioner; PCP Nurse Practitioner; Visit Provider Surgery
DX: G89.18 Other acute postprocedural pain (principal)
CPT/HCPCS: 71045; 80053; 81001; 82150; 83605; 83690; 84484; 85025; 87040; 87507; 96365; 96375; 99282; G0378; J2270; J2405

== ENCOUNTER → 2017-09-30 09:28 | Outpatient (CLI) | payer MEDICAID, SELFPAY ==
[2017-09-30 09:50] LABS: Basophils % 0.4 % (0.1-2.0); Eosinophils # 0.1 K/mm3 (0.0-0.4); Hematocrit 38.9 % (37.0-47.0); Hemoglobin 12.6 g/dL (12.2-16.2); Lymphocytes # 1.9 K/mm3 (0.7-4.5); Lymphocytes % 31.3 K/mm3 (10-50); Mean Corpuscular HGB Conc 32.5 g/dL (31.8-35.4); Mean Corpuscular Hemoglobin 27.3 pg (27.0-31.2); Mean Platelet Volume 7.5 fl (7.4-10.4); Monocytes # 0.4 K/mm3 (0.1-1.0); Monocytes % 6.1 % (1.7-9.3); Neutrophils # 3.7 K/mm3 (1.8-7.8); Neutrophils % 60.3 % (37.0-80.0); Platelet Count 315 K/mm3 (142-424); Red Blood Count 4.63 M/mm3 (4.20-5.40); Red Cell Distribution Width 13.1 % (11.5-17.5); White Blood Count 6.1 K/mm3 (4.8-10.8)
[2017-09-30 10:02] LABS: Alanine Aminotransferase 20 U/L (12-78); Albumin Level 3.5 gm/dL (3.4-5.0); Albumin/Globulin Ratio 0.9 (1.1-1.8); Alkaline Phosphatase 69 U/L (46-116); Amylase 85 U/L (25-125); Anion Gap 11.7 mEq/L (5-15); Aspartate Amino Transferase 16 U/L (15-37); Bilirubin,Total 0.4 mg/dL (0.2-1.0); Blood Urea Nitrogen 12 mg/dL (7-18); Calcium 8.9 mg/dL (8.5-10.1); Carbon Dioxide 29 mmol/L (21.0-32.0); Chloride 104 mmol/L (98-107); Estimated Glomerular Filt Rate 74 ml/min (>60); GFR (African American) 89 ML/MIN (>60); Globulin 3.9 gm/dl (1.3-3.2); Glucose 104 mg/dL (74-106); Lipase 211 u/L (73-393); Potassium 3.7 mmoL/L (3.5-5.1); Sodium 141 mmol/L (136-145); Total Protein,Serum 7.4 gm/dL (6.4-8.2)
== END ==
PROVIDERS: Family Provider Nurse Practitioner; PCP Nurse Practitioner; Visit Provider Surgery
DX: R10.11 Right upper quadrant pain (principal)
CPT/HCPCS: 36415; 80053; 82150; 83690; 85025

== ENCOUNTER → 2017-10-27 09:10 | Outpatient (CLI) | payer MEDICAID, SELFPAY ==
--- NOTE | 2017-10-27 | US_ITS ---
US transvaginal HISTORY: Right-sided abdominal pain ITS.REASON: RT SIDE ABD PAIN ORDERING PHYSICIAN: Joanna Leos PATIENT AGE: 57 years COMPARISON: None FINDINGS: Transabdominal and endovaginal imaging is performed. The uterus is not identified. There was question whether ovaries were present or not. There is apparently some confusion as to where the patient's ovaries were or were not removed. There were not seen on the previous abdomen and pelvis CT of 06/29/2017. No obvious pelvic mass or abnormal fluid collection. IMPRESSION: Prior hysterectomy. Ovaries not definitely identified. No pelvic mass or abnormal fluid collection apparent
--- NOTE | 2017-10-27 09:14 | US_ITS ---
US abdomen complete HISTORY: ITS.REASON: RIDED ABD PAIN, EPIGASTRIC PAIN ORDERING PHYSICIAN: Joanna Leos PATIENT AGE: 57 years COMPARISON: None FINDINGS: PANCREAS:Unremarkable. No obvious mass or abnormal fluid collection. No ductal dilatation LIVER:No focal liver lesions demonstrated. Homogeneous echogenicity. No intrahepatic biliary ductal dilatation evident. There is appropriate direction of flow within a nondilated portal vein. Common duct is normal at 2 mm. RIGHT KIDNEY:Unremarkable. Normal size and echogenicity. No hydronephrosis LEFT KIDNEY:Unremarkable. No hydronephrosis. Normal size and echogenicity. GALLBLADDER:Prior cholecystectomy. No ductal dilatation AORTA:No evidence of aneurysmal dilatation. SPLEEN:Unremarkable. Normal size and echogenicity ASCITES:None demonstrated. IMPRESSION: 1. Prior cholecystectomy. 2. Otherwise negative abdominal ultrasound
== END ==
PROVIDERS: Family Provider Nurse Practitioner; PCP Nurse Practitioner; Visit Provider Nurse Practitioner
DX: R10.13 Epigastric pain (principal); R10.11 Right upper quadrant pain
CPT/HCPCS: 76700; 76830; 76856

== ENCOUNTER → 2018-01-24 10:28 | Outpatient (CLI) | payer MEDICAID, SELFPAY ==
--- NOTE | 2018-01-24 10:37 | XR_ITS ---
XR knee RT 3V HISTORY: ITS.REASON: BILAT KNEE PAIN ORDERING PHYSICIAN: Yolande Uribe PATIENT AGE: 57 years COMPARISON: None FINDINGS: Mild osteoarthritic changes are present at the medial compartment and patellofemoral joint. No fracture or dislocation. No lytic or blastic change. IMPRESSION: Mild osteoarthritis of the right knee
--- NOTE | 2018-01-24 10:37 | XR_ITS ---
XR knee LT 3V HISTORY: ITS.REASON: BILAT KNEE PAIN ORDERING PHYSICIAN: Yolande Uribe PATIENT AGE: 57 years COMPARISON: None FINDINGS: Mild to moderate osteoarthritic changes are present involving all 3 compartments greater at the medial compartment and patellofemoral joint. No fracture or dislocation. No lytic or blastic change. IMPRESSION: Mild to moderate osteoarthritis of the left knee
== END ==
PROVIDERS: PCP Nurse Practitioner Family; Visit Provider Nurse Practitioner Family
DX: M25.562 Pain in left knee (principal); M25.561 Pain in right knee
CPT/HCPCS: 73562

== ENCOUNTER → 2018-12-25 08:55 | Outpatient (CLI) | payer MEDICAID, SELFPAY ==
--- NOTE | 2018-12-25 09:13 | CT_ITS ---
CT head/brain wo con HISTORY: ITS.REASON: CHRONIC POST TRAUMATIC HEADACHE ORDERING PHYSICIAN: Joanna Leos APRN PATIENT AGE: 58 years COMPARISON: 01/15/2014 TECHNIQUE: Axial images obtained without contrast. Brain and bone windows reviewed. All CT scans at the facility use one or more dose reduction, viz: automated exposure control, ma/kV adjustment per patient size (including targeted exams where dose is matched to indication, i.e. head), or iterative reconstruction technique. FINDINGS: No midline shift, mass effect, intracranial hemorrhage, hydrocephalus, or extra-axial fluid collection is evident. There are scattered areas of decreased attenuation in the periventricular region which may be related to ischemic gliotic change from microvascular disease. The calvarium has an unremarkable appearance. No mastoid effusion. No sinus air-fluid levels.. IMPRESSION: No acute intracranial findings
== END ==
PROVIDERS: PCP Nurse Practitioner; Visit Provider Nurse Practitioner
DX: G44.329 Chronic post-traumatic headache, not intractable (principal)
CPT/HCPCS: 70450

== ENCOUNTER → 2020-06-05 13:12 | Outpatient (CLI) | payer OTHER, SELFPAY ==
[2020-06-05 14:58] LABS: Blood Urea Nitrogen 10 mg/dl (7-17); Estimated Glomerular Filt Rate 64 ml/min (>60); GFR (African American) 77 ML/MIN (>60)
== END ==
PROVIDERS: Visit Provider Nurse Practitioner Family
DX: Z01.818 Encounter for other preprocedural examination (principal); R10.30 Lower abdominal pain, unspecified
CPT/HCPCS: 36415; 82565; 84520

== ENCOUNTER → 2020-06-06 09:32 | Outpatient (CLI) | payer OTHER, SELFPAY ==
--- NOTE | 2020-06-06 09:36 | CT_ITS ---
PROCEDURE: CT ABDOMEN PELVIS W CON CLINICAL INDICATION: LOWER ABD PAIN Right-sided lower abdominal pain COMPARISON: CT ABDPELW CT ABD PELVIS W/ CONTRAST from 06/29/2017 TECHNIQUE: IV Contrast: 75ML OPTIRAY 350 Oral Contrast None Axial images obtained with sagittal and coronal reformats. All CT scans at the facility use one or more dose reduction, viz: automated exposure control, ma/kV adjustment per patient size (including targeted exams where dose is matched to indication, i.e. head), or iterative reconstruction technique. FINDINGS: LOWER THORAX: There is a stable 3 mm nodule in the right lung base posteriorly. ABDOMEN & PELVIS: Prior cholecystectomy. The liver, spleen, adrenal glands, pancreas has an unremarkable appearance. Nonobstructing 3 mm stone is present in the upper pole of the right kidney. No ureteral calculi. No hydronephrosis. No intestinal obstruction or free air. No evidence of appendicitis. No intestinal obstruction or free air. No evidence of diverticulitis. There are post hysterectomy changes. There are few small mesenteric lymph nodes. No acute bony findings. Mild osteoarthritic changes are present in the hips. IMPRESSION: No acute finding Nonobstructing right nephrolithiasis. Dictated by: Newton Johnson MD 06/06/2020 10:25 Newton Johnson MD in [facility] 06/06/2020 10:25
--- NOTE | 2020-06-06 09:47 | MM_ITS ---
PROCEDURE: MM DIG SCREENING MAMM BI W/CAD Digital Breast Tomosynthesis Included CLINICAL INDICATION: SCREENING There is a history of breast cancer in patient's sister. COMPARISON: MG MAMMO SCREENING DIGITAL BILAT from 02/20/2016 MG DMSB DIG MAMM-SCREEN DIANA W/CAD from 04/15/2017 TECHNIQUE: Standard CC and MLO images and 3D Tomosynthesis was obtained. R2 CAD reviewed. FINDINGS: The breasts are composed almost entirely of fat with minimal fibroglandular densities in the central portion bilaterally. There is faint arterial calcification in each breast. There is no suspicious lesion in either breast and no suspicious microcalcifications. IMPRESSION: Fatty type breast parenchyma with no suspicious lesions seen BI-RAD Category: 2 Benign Finding(s) FOLLOW-UP: 1YR 1 Year Follow-up (A letter has been sent to the patient regarding results of the study.) Dictated by: Dr. Marco Lai MD 06/06/2020 13:13 Dr. Marco Lai MD in [facility] 06/06/2020 13:13
== END ==
PROVIDERS: PCP Nurse Practitioner; Visit Provider Nurse Practitioner Family
DX: R10.30 Lower abdominal pain, unspecified (principal); Z12.31 Encounter for screening mammogram for malignant neoplasm of breast
CPT/HCPCS: 74177; 77063; 77067; Q9967

== ENCOUNTER → 2020-06-27 08:51 | Outpatient (CLI) | payer OTHER, SELFPAY ==
--- NOTE | 2020-06-27 08:57 | US_ITS ---
PROCEDURE: US TRANSVAGINAL CLINICAL INDICATION: SUPRAPUBIC PAIN COMPARISON: US TRANVAG US transvaginal from 10/27/2017 FINDINGS: There has been a prior hysterectomy. The left ovary is not visualized transabdominal or endovaginal. What appears represent the right ovary measures 14 x 9 mm. No pelvic mass or abnormal fluid collection evident. IMPRESSION: Prior hysterectomy. Nonvisualization of left ovary with unremarkable appearing right ovary Dictated by: Newton Johnson MD 06/27/2020 17:34 Newton Johnson MD in [facility] 06/27/2020 17:34
== END ==
PROVIDERS: PCP Nurse Practitioner; Visit Provider Nurse Practitioner Family
DX: R10.2 Pelvic and perineal pain (principal)
CPT/HCPCS: 76830

== ENCOUNTER 2020-12-04 20:48 | Emergency (ER) | payer OTHER, SELFPAY ==
[2020-12-04 20:59] VITALS: BP 200/96; PULSE 68; RESP 18; TEMP 36.9; O2SAT 99; BMI 34.7
[2020-12-04 21:08] VITALS: BP 000/00; PULSE 0; RESP 16; TEMP 36.4
--- NOTE | 2020-12-04 21:08 | HMH.EDUTC ---
[facility] [place] Disposition Clinical Impression: Contact dermatitis Qualifiers: Contact dermatitis type: allergic Contact dermatitis trigger: unspecified trigger Qualified Code(s): L23.9 - Allergic contact dermatitis, unspecified cause Disposition: Home, Self-Care Condition on Discharge: Good Instructions: Contact Dermatitis, DI for Contact Dermatitis Additional Instructions: Try to avoid contact with the offending substance. Don't start the oral steroids until tomorrow. Take the benedryl (diphenhydramine) as directed for itching if necessary. Follow up with your regular doctor. GO TO THE ER FOR ANY WORSENING SYMPTOMS OR CONCERNS Prescriptions: diphenhydrAMINE HCL [Diphenhydramine HCl] 25 mg PO Q6HP PRN #30 cap PRN Reason: Itching Transmission Status: Received by [id number] methylPREDNISolone [Medrol] 4 mg PO DIRECTED 6 Days #21 [email or web address] Transmission Status: Received by [id number] Referrals: Tracey Monroy MD [Primary Care Provider] - Time of Disposition: 21:10 Medical Decision Making - Medical Records Medical records reviewed: No: I reviewed the patient's medical records. - Jose Inquiry Pt receiving controlled substance: No Vital Signs: 12/04/20 20:59 12/04/20 21:08 Temperature 98.5 F 97.6 F Temperature Source Oral Tympanic Pulse Rate 0 L Pulse Rate [Right] 68 Respiratory Rate 18 16 Blood Pressure 000/00 L Blood Pressure [Right Arm] 200/96 H Blood Pressure Mean [Right Arm] 130 Blood Pressure Source [Right Arm] Automatic Cuff 02 Sat by Pulse Oximetry 99 Oxygen Delivery Method Room Air Orders (Tests/Meds): ED MEDICATIONS Discontinued Medications Generic Name Dose Route Start Last Admin Trade Name Freq PRN Reason Stop Dose Admin Methylprednisolone Sodium Succinate 125 mg 12/04/20 21:05 12/04/20 21:06 Methylprednisolone Sod Succ 125mg Vial IM 12/04/20 21:06 125 mg ONCE ONE Administration [facility] [place] HPI - General Stated complaint: reaction from possible hanna Time Seen by Provider: 12/04/20 21:08 Mode of Arrival: Ambulatory Limitations: Language Barrier Description of Symptoms (Recalled from Triage Doc. by RN): Pt reports she got into some new hanna at [employer] and has pain, swelling, and rash arorund eyes. She denies any itching. Pt denies any SOA, dyspnea, or swelling to mouth. HEENT Symptoms (Recalled from RN notes): Yes Resp Symptoms (Recalled from RN notes): No Skin Symptoms (Recalled from RN notes): Yes MS Symptoms (Recalled from RN notes): No Functional Status (Recalled from RN notes): na - History of Present Illness Provider Complaint: She states (thru her interpretor) that she has had itching and rash of her face for the past 5 hours. 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 She believes that she has touched something that she is allergic to. She denies any swelling of her tongue or mouth, she denies any chest pain and chest tightness. - Related Data Home Medications Medication Instructions Recorded Confirmed Naproxen [Naprosyn 500mg tablet] 500 mg PO BID 09/07/17 09/08/17 clotrimazole 1 % topical cream 1 applic TOPICAL BID 06/26/20 06/26/20 losartan 25 mg tablet 25 mg PO DAILY 06/26/20 06/26/20 Previous Rx's Medication Instructions Recorded diphenhydrAMINE HCL 25 mg PO Q6HP PRN #30 cap 12/04/20 [Diphenhydramine HCl] methylPREDNISolone [Medrol] 4 mg PO DIRECTED 6 Days #21 12/04/20 tab.[email or web address] Allergies Allergy/AdvReac Type Severity Reaction Status Date / Time No Known Allergies Allergy Verified 12/04/20 21:03 - Worker's Comp Is this a Worker's Comp case?: No [facility] History - Hepatitis A Screen Drug use history?: No High risk sexual behaviors?: No History of sexually transmitted infection?: No Currently employed?: No Childcare worker?: No Do you have indoor plumbing?: Yes Do you have electricity?: Yes Attestation statement:: This patient has been
== END 2020-12-04 21:14 | disposition home or self-care (01) ==
PROVIDERS: Emergency Provider Nurse Practitioner Family; PCP Family Medicine
DX: L23.9 Allergic contact dermatitis, unspecified cause (principal); I10 Essential (primary) hypertension
CPT/HCPCS: 96372; 99202; G0463

== ENCOUNTER → 2021-06-15 10:10 | Outpatient (CLI) | payer OTHER, SELFPAY ==
--- NOTE | 2021-06-15 10:28 | XR_ITS ---
PROCEDURE: XR CHEST 2V CLINICAL HISTORY: ENLARGED LYMPH NODES COMPARISON: CT CHW CT CHEST W/ CONTRAST from 09/30/2014 CR [id number] XR chest portable from 09/08/2017 FINDINGS: The cardiomediastinal silhouette and pulmonary vascularity are within normal limits. The lungs are clear without infiltrates, suspicious nodules, or pleural effusions. The small clip is present overlying the left paratracheal region. No acute bony findings. IMPRESSION: No acute findings. Dictated by: Newton Johnson MD 06/15/2021 13:04 Newton Johnson MD in [facility] 06/15/2021 13:04
== END ==
PROVIDERS: PCP Nurse Practitioner Family; Visit Provider Nurse Practitioner Family
DX: R59.9 Enlarged lymph nodes, unspecified (principal)
CPT/HCPCS: 71046

== ENCOUNTER 2022-10-14 09:11 | Observation (INO) | payer OTHER, SELFPAY ==
[2022-10-14] VITALS (18 sets, daily range): BP systolic 127–185; BP diastolic 67–95; PULSE 58–72; RESP 12–18; TEMP 36.6–36.9; O2SAT 96–100; BMI 31.1; BMI 31.4
--- NOTE | 2022-10-14 09:13 | ECG_ITS ---
APPROVED REPORT Exam: Resting ECG HR:56 bpm ECG Measurements Heart Rate 56 AXES GA 152 P 79 QRSd 89 QRS 45 QT 383 T 52 QTc 375 Conclusion SINUS BRADYCARDIA BORDERLINE ECG UNCONFIRMED REPORT Electronically signed by : Jamie Russo MD 10/15/2022 08:13:11
--- NOTE | 2022-10-14 09:24 | HMH.EDGENADL ---
Discharge Plan Disposition Patient Disposition: Admitted as Observation Condition: Good Prescriptions Prescriptions: No Action naproxen 500 MG tablet 500 mg PO BID cetirizine 10 mg tablet 10 mg PO DAILY omeprazole 40 mg capsule,delayed release(DR/EC) 40 mg PO DAILY gabapentin 300 mg capsule 300 mg PO HS metformin 500 mg tablet extended release 24 hr 500 mg PO DAILY Label Comments: TAKE 1 TABLET BY MOUTH ONCE DAILY WITH EVENING MEAL irbesartan 300 mg tablet 300 mg PO DAILY Label Comments: TAKE 1 TABLET BY MOUTH ONCE DAILY valsartan 160 mg tablet 160 mg PO DAILY Referrals Follow up/Referrals: Provider,Referral, MD [Referring] - See instructions Clinical Impressions Clinical Impression: Chest pain Discharge ED Provider: Mark Lee General Adult HPI General Chief complaint: Chest Pain Stated complaint: CP Time Seen by Provider: 10/14/22 09:44 History of Present Illness HPI narrative: History obtained from patient and . The patient speaks Fijian, interprets. The patient is sent from her primary care provider's office, Carol Ann Mann. She was seen there this morning. states she has high blood pressure and chest pain. He states that her chest pain began yesterday approximately 3 PM. It lasted about an hour at that time and has been coming and going since. He came back on this morning and has been present all day. Pain is predominantly along her left lateral chest. It hurts when she breathes. She feels short of breath. She has been sweaty and nauseated. She also got dizzy when she had her x-ray in the emergency department. No cough. No fever. She does not have any known cardiac problems. She has never had a cardiac work-up. She has hypertension, but does not have hyperlipidemia. She has prediabetes , she is on Metformin. About a month and a half ago she had surgery on the veins in her legs at . Denies any current complaints of pain or swelling. Related Data Home Medications Medication Instructions Recorded Confirmed naproxen 500 mg tablet 500 mg PO BID Pain 09/07/17 10/14/22 cetirizine 10 mg tablet 10 mg PO DAILY allergies 10/14/22 10/14/22 gabapentin 300 mg capsule 300 mg PO HS Pain 10/14/22 10/14/22 irbesartan 300 mg tablet 300 mg PO DAILY blood pressure 03/09/23 03/09/23 metformin 500 mg tablet,extended 500 mg PO DAILY Diabetes 10/14/22 10/14/22 release 24 hr omeprazole 40 mg capsule,delayed 40 mg PO DAILY GERD 10/14/22 10/14/22 release valsartan 160 mg tablet 160 mg PO DAILY High blood pressure 10/14/22 10/14/22 Allergies Allergy/AdvReac Type Severity Reaction Status Date / Time No Known Allergies Allergy Verified 12/04/20 21:03 [facility] Disclaimer: The information contained in this section may have been updated after the patient was seen, as this information can be updated by other users. Social History Smoking Status: Never smoker second hand exposure: No alcohol intake: never counseling provided: provider counseling substance use type: denies use current occupational status: unemployed Travel in the last 8 weeks: None household members: spouse housing: house current occupational exposures/hazards: No ROS Obtained: Yes Systems reviewed as appropriate & no additional complaints except as documented Constitutional Constitutional: Denies fever(s), Denies headache(s) and Denies weakness ENT Ears, Nose, Mouth, and Throat: Reports dizziness, Denies headache(s), Denies nasal discharge and Denies sore throat Cardiovascular Cardiovascular: Reports chest pain, Reports diaphoresis and Denies radiating jaw, neck or arm pain Respiratory Respiratory: Reports shortness of breath, Denies cough and Reports pain with breathing Gastrointestinal Gastrointestingal: Reports nausea; Denies abdominal pain, constipation, diarrhea or vomiting Genitourinary Female Genitourinary
--- NOTE | 2022-10-14 09:27 | XR_ITS ---
FINAL REPORT CLINICAL HISTORY: chest pain, dizzy COMPARISON: 06/15/2021 FINDINGS: 2 views of the chest were obtained . The heart is normal in size. The mediastinum is within normal limits. The lungs are clear. There is no pneumothorax. Osseous structures are unremarkable. IMPRESSION: No acute cardiopulmonary process. Reviewed, Interpreted and Dictated by Cirilo Rubalcava III, MD Transcribed by Chelo Rausch Authenticated and [facility]
[2022-10-14 09:36] LABS: Basophils # 0.1 K/mm3 (0-0.2); Eosinophils # 0.1 K/mm3 (0.0-0.4); Eosinophils % 1.4 % (0.1-12.0); Hematocrit 37.4 % (37.0-47.0); Hemoglobin 12.3 g/dL (12.2-16.2); Lymphocytes % 29.9 % (10-50); Mean Corpuscular HGB Conc 32.9 g/dL (31.8-35.4); Mean Corpuscular Hemoglobin 28.1 pg (27.0-31.2); Mean Corpuscular Volume 85.4 fl (81-99); Mean Platelet Volume 7.5 fl (7.4-10.4); Monocytes # 0.3 K/mm3 (0.1-1.0); Monocytes % 4.8 % (1.7-9.3); Neutrophils # 4.3 K/mm3 (1.8-7.8); Neutrophils % 62.8 % (37.0-80.0); Platelet Count 360 K/mm3 (142-424); Red Blood Count 4.38 M/mm3 (4.20-5.40); Red Cell Distribution Width 14.1 % (11.5-17.5); White Blood Count 6.8 K/mm3 (4.8-10.8)
--- NOTE | 2022-10-14 09:42 | PC.NURSE ---
Pt states that her pain before nitro when she is moving or takes a deep breath is a 7, staying still it is a 5, after nitro pain is the same 7 moving and 5 staying still but she feels better after nitro. Primary nurse aware
[2022-10-14 09:48] LABS: Blood Urea Nitrogen 14 mg/dl (7-17); Calcium 8.9 mg/dl (8.4-10.2); Carbon Dioxide 31 mmol/L (22.0-30.0); Creatinine Clearance Estimated 68 mL/min (50-200); Estimated Glomerular Filt Rate 63 ml/min (>60); GFR (African American) 77 ML/MIN (>60); Glucose 84 mg/dl (74-100)
--- NOTE | 2022-10-14 09:54 | PC.NURSE ---
JESSIE MONTEMAYOR at for patient eval
[2022-10-14 10:02] LABS: Troponin I < 0.01 ng/ml (0.00-0.034)
[2022-10-14 10:03] LABS: Chloride 102 mmol/L (98-107)
[2022-10-14 10:05] LABS: Potassium 3.8 mmoL/L (3.5-5.1); Sodium 138 mmol/L (136-145)
--- NOTE | 2022-10-14 10:41 | PC.NURSE ---
rounded on pt, spouse at bs. blue top redrew and sent to lab
--- NOTE | 2022-10-14 10:41 | PC.NURSE ---
Pt updated on plan of care. Awaiting results. No complaints at this time.
--- NOTE | 2022-10-14 10:53 | PC.NURSE ---
checked on pt has no complaint at this time, @ bs
[2022-10-14 11:01] LABS: D-Dimer 0.86 ug/mL (0.0-0.5)
--- NOTE | 2022-10-14 11:05 | CT_ITS ---
FINAL REPORT TECHNIQUE: Thin section axial CT images of the chest were obtained with contrast. 3D reformatted images were also obtained. This study was performed with techniques to keep radiation doses as low as reasonably achievable (ALARA). Individualized dose reduction techniques using automated exposure control or adjustment of mA and/or kV according to the patient's size were employed. CLINICAL HISTORY: cp, elev d-dimer, varicose v surg 6 wks ago COMPARISON: none FINDINGS: There is no evidence of pulmonary embolism. There is no evidence of thoracic aortic aneurysm or dissection. There is no evidence of mediastinal or hilar mass or adenopathy. There is no evidence of pulmonary mass or nodule. There is mild atelectasis or scarring in the lung bases. Limited images of the upper abdomen demonstrate post cholecystectomy. IMPRESSION: No evidence of pulmonary embolism. Mild atelectasis or scarring in the lung bases. Reviewed, Interpreted and Dictated by Cirilo Rubalcava III, MD Transcribed by Iva Aparicio Authenticated and [facility]
--- NOTE | 2022-10-14 11:23 | PC.NURSE ---
pt aware that we are waiting on second trop to be drawn at 12:30, spouse at bs, no needs at this time
--- NOTE | 2022-10-14 11:24 | PC.NURSE ---
checked on pt no complaints @ bs
--- NOTE | 2022-10-14 11:42 | PC.NURSE ---
pt going to rad
--- NOTE | 2022-10-14 11:46 | PC.NURSE ---
pt to radiology
--- NOTE | 2022-10-14 11:57 | PC.WOUNDNOTE ---
pt returned to room
--- NOTE | 2022-10-14 12:18 | PC.NURSE ---
Lab aware of needing 2nd troponin
[2022-10-14 13:09] LABS: Troponin I < 0.01 ng/ml (0.00-0.034)
--- NOTE | 2022-10-14 13:36 | PC.NURSE ---
JESSIE MONTEMAYOR speaking with KEYANNA Rush in Cardiology
--- NOTE | 2022-10-14 13:38 | PC.NURSE ---
ER at for update on POC; Family at
--- NOTE | 2022-10-14 13:42 | PC.NURSE ---
KEYANNA Rush at BS
--- NOTE | 2022-10-14 13:58 | PC.NURSE ---
dr grewal hospitalist speaking to er about admission
--- NOTE | 2022-10-14 13:59 | PC.NURSE ---
sent covid/flu swab to lab
--- NOTE | 2022-10-14 14:02 | PC.NURSE ---
Spoke with Caity in care management regarding patient admission
--- NOTE | 2022-10-14 14:03 | CA_ITS ---
APPROVED REPORT EXAM: Comprehensive 2D, Doppler, and color-flow Echocardiogram Hand Lacer: WES Flores, RVS Ht: 5 ft 1 in Wt: 155lbs BSA: 1.69 BP: 173/80 mmHg Rhythm: Bradycardia Indications: CP, SOB, HTN, Pre-diabetic, Non slovenian speaker 2D Dimensions LVDd 4.27 cm LVEF (Visual) 54.30 % LVDs 3.08 cm LA Volume 52.90 mL Aortic Root 3.05 cm LA Volume Index 31.10 mL/m2 (M/F) 16-34 Left Atrium 2.95 cm LVOT 1.94 cm (M/F) 1.5-2.5 M-Mode Dimensions RVDd 2.12 cm (0.9-2.6) LA Diam 3.48 cm (1.9-4.0) LVDd 4.98 cm (3.5-5.7) Ao Diam 3.20 cm (2.0-3.7) LVDs 2.99 cm (3.5-5.7) IVSd 1.08 cm (0.6-1.1) PWd 0.81 cm (0.6-1.1) EF (Teich) 70.40% EPSs 0.24 cm FS 40.00% EDV (Teich) 117.10 mL TAPSE 1.54 (<1.7) ESV (Teich) 34.70 mL LV Diastology E Decel Time 200.00 (160-240 msec) E/A Ratio 0.80 MED E' 7.40 (< 7 cm/sec) MED A' 9.70 cm/s E'/MED E' Ratio 9.35 (>14) LAT E' 7.00 (<10 cm/sec) LAT A' 8.50 cm/s E/LAT E' Ratio 9.89 (>14) Aortic Valve LVOT Max 87.00 (70-110 cm/s) LVOT VTI 22.57 cm AoV Peak Circket. 118.00 (50-130 cm/s) AO Peak GR. 5.60 mmHg AO Mean GR. 2.90 (<5 mmHg) AO VTI 26.78 (18-25 cm) REYNA (VTI) 2.49 (2.5-4.5 cm2) Mitral Valve MV A Velocity 86.00 (40-130 cm/s) E/A Ratio 0.80 MV Decel. Time 200.00 (160-240 ms) MV Mean Gr. 1.00 (<2mmHg) MV PHT 72.00 ms Pulmonary Valve PV Peak Velocity 74.00 (50-150 cm/s) UT End VMAX 202.00 cm/s Tricuspid Valve TR P. Velocity 226.00 cm/s RAP Estimate 10.00 mmHg RVSP 30.40 mmHg Left Ventricle Left atrium is mildly enlarged, left ventricle is normal size, there is mild concentric left ventricular hypertrophy, estimated ejection fraction 55% with no regional wall motion abnormality, grade 1 diastolic dysfunction seen without tissue Doppler evidence of raise left atrial pressure. Right Ventricle Right atrium and right ventricular mildly enlarged with normal contractility. Aortic Valve Aortic valve is minimally thickened and fibrosed there is no aortic stenosis or aortic insufficiency. Mitral Valve Mitral valve is grossly normal, there is trace mitral regurgitation. Tricuspid Valve Tricuspid grossly normal, there is trace tricuspid regurgitation, calculated right ventricular systolic pressure is 26 mmHg. Pulmonic Valve Pulmonic valve is poorly visualized. Great Vessels Aortic root is normal size. Inferior vena cava normal 7 normal inspiratory collapse. Pericardium Trivial pericardial effusion noted. Conclusion 1. Mild biatrial enlargement, normal left ventricular size, mild concentric left ventricular hypertrophy, estimated ejection fraction 55% with no regional wall motion abnormality, grade 1 diastolic dysfunction seen without tissue Doppler evidence of raise left atrial pressure. 2. Mildly enlarged right ventricle with normal contractility. 3. Trace mitral and tricuspid regurgitation, calculated right ventricular systolic pressure is 26 mmHg. 4. Trivial pericardial effusion noted. 5. Inferior vena cava is normal size with normal inspiratory collapse. Electronically signed by : Charbel Serrano MD 10/15/2022 09:54:30
--- NOTE | 2022-10-14 14:14 | EXP.CARD.CON ---
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 Overall patient and are poor historians:62-year-old female with past medical history of hypertension and hyperlipidemia presented to ER with complaints of chest pain and high blood pressure. Patient reports went to PCP office today with complaint of chest pain and was sent to ER for further evaluation. Patient mostly endorses left lateral chest wall pain and back pain that is worse with palpation and movement of left arm. However, patient also complains of midsternal chest heaviness associated with some nausea and sweating. Reports blood pressure being elevated at home. EKG in ER is negative for acute ischemic changes. Blood pressure noted to be elevated in ER with systolic being in the 170s. Serial troponins negative. CTA and chest x-ray negative for acute process. [facility] Disclaimer: The information contained in this section may have been updated after the patient was seen, as this information can be updated by other users. Social History Smoking Status: Never smoker second hand exposure: No alcohol intake: never counseling provided: provider counseling substance use type: denies use current occupational status: unemployed Travel in the last 8 weeks: None household members: spouse housing: house current occupational exposures/hazards: No Review of Systems Constitutional Constitutional: Denies headache(s) and Denies weakness ENT Ears, Nose, Mouth, and Throat: Reports dizziness and Denies headache(s) *Cardiovascular Cardiovascular: Reports chest pain and Reports dyspnea *Respiratory Respiratory: Reports dyspnea *Musculoskeletal Musculoskeletal: Denies numbness *Neurologic Neurologic: Reports dizziness, Denies headache(s), Denies numbness and Denies weakness Exam Data for Last 24 hours Vital signs and Labs for Last 24 Hours: Temp Pulse Resp BP Pulse Ox 98.1 F 60 13 173/80 H 98 10/14/22 09:11 10/14/22 13:31 10/14/22 11:00 10/14/22 13:31 10/14/22 13:31 Laboratory Results - last 24 hr 10/14/22 09:20: WBC 6.8, RBC 4.38, Hgb 12.3, Hct 37.4, MCV 85.4, MCH 28.1, MCHC 32.9, RDW 14.1, Plt Count 360, MPV 7.5, Neut % (Auto) 62.8, Lymph % (Auto) 29.9, [place] % (Auto) 4.8, Eos % (Auto) 1.4, Baso % (Auto) 1.0, Neut # (Auto) 4.3, Lymph # (Auto) 2.0, [place] # (Auto) 0.3, Eos # (Auto) 0.1, Baso # (Auto) 0.1 10/14/22 09:20: Sodium 138, Potassium 3.8, Chloride 102, Carbon Dioxide 31 H, Anion Gap 5.0, BUN 14, Creatinine 0.90, Estimated Creat Clear 68, Estimated GFR 63, Est GFR ( Amer) 77, Glucose 84, Calcium 8.9, Troponin I < 0.01 10/14/22 10:40: D-Dimer 0.86 H 10/14/22 12:25: Troponin I < 0.01 I & O for Last 24 hours: Intake & Output 10/11/22 10/12/22 10/13/22 10/14/22 23:59 23:59 23:59 23:59 Weight 165 lb Constitutional Constitutional: no acute distress *Routine Respiratory Exam Respiratory: Present CTA bilaterally and symmetric chest movement *Routine Cardiovascular Exam Cardiovascular: Present RRR, Normal S1 and Normal S2 *Routine Abdominal Exam Abdominal: Present soft and normoactive bowel sounds; Absent tenderness *Routine Extremities Exam Extremities: Present full ROM and normal capillary refill; Absent edema *Routine Skin Exam Skin: Present intact, dry and warm Detailed Neck Exam: Thyroids Thyroid: Absent bruit Meds Home Medications and Allergies Home Medications Medication Instructions Recorded Confirmed Type cetirizine 10 mg tablet 10 mg PO DAILY allergies 10/14/22 10/14/22 History gabapentin 300 mg capsule 300 mg PO HS Pain 10/14/22 10/14/22 History irbesartan 300 mg tablet 300 mg PO DAILY blood pressure 10/14/22 10/14/22 History metformin 500 mg tablet,extended 500 mg PO D
[2022-10-14 14:17] LABS: Coronavirus 19, PCR Not Detected (NotDetected); Influenza A, PCR Not Detected (NotDetected); Influenza B, PCR Not Detected (NotDetected)
--- NOTE | 2022-10-14 14:17 | HMH.PHAINT1 ---
Pharmacy Intervention Comments: Medication reconciliation completed using external fill history
--- NOTE | 2022-10-14 14:28 | PC.NURSE ---
Attempted report x 1
--- NOTE | 2022-10-14 14:31 | EXP.HP ---
History of Present Illness *Admission Date: 10/14/22 *Reason for visit:: chest pain *History of present illness: Ms. Wil Peña is a pleasant 62-year-old female napaimute Senegalese speaker who presented with her to the ER due to chest pain. History obtained via and caster helper (Amita KUMAR). States that she has a history of hypertension, diabetes, hyperlipidemia. She presented to the ER because of chest pain and high blood pressure. Went to her primary care doctor's office earlier today with complaint of chest pain and was sent to the ER for further evaluation. Pain predominantly in her left lateral chest with referral to her back. Occasionally complains of midsternal chest heaviness associated with some nausea and sweating. Denies any shortness of breath, cough, confusion, palpitations. Blood pressures been elevated at home. ER work-up with labs and EKG. Initial troponin negative at less than 0.01. EKG with no acute ischemic changes. Cardiology consulted while patient in the ER and recommended admission given risk factors and characteristics of chest pain. Blood pressure significantly elevated with systolic of 170 in the ER. Additional work-up for etiologies of chest pain including CTA of chest and x-ray showing no acute findings of PE or pulmonary process. After arrival to the floor, patient describes the pain in her chest is pressure-like. Has gotten worse over the past 2 to 3 days. Some component of it has been present for 4 to 6 weeks since her recent sclerotherapy in bilateral lower legs. Occasionally has some nausea, mainly today. Has been taking ibuprofen and Tylenol for pain after her sclerotherapy. [facility] Disclaimer: The information contained in this section may have been updated after the patient was seen, as this information can be updated by other users. Medical History Diabetes HTN (hypertension) Surgical History S/P sclerotherapy of varicose veins Family History No significant family history Social History Smoking Status: Never smoker second hand exposure: No alcohol intake: never counseling provided: provider counseling substance use type: denies use current occupational status: unemployed Travel in the last 8 weeks: None household members: spouse housing: house current occupational exposures/hazards: No Review of Systems Review of Systems Review of systems (narrative): 14 point review of systems performed, pertinent positives and negatives as per HPI Constitutional Constitutional: Denies headache(s) and Denies weakness ENT Ears, Nose, Mouth, and Throat: Reports dizziness and Denies headache(s) *Musculoskeletal Musculoskeletal: Denies numbness *Neurologic Neurologic: Reports dizziness, Denies headache(s), Denies numbness and Denies weakness Meds Home Medications and Allergies Home Medications Medication Instructions Recorded Confirmed Type cetirizine 10 mg tablet 10 mg PO DAILY allergies 10/14/22 10/14/22 History gabapentin 300 mg capsule 300 mg PO HS Pain 10/14/22 10/14/22 History irbesartan 300 mg tablet 300 mg PO DAILY blood pressure 10/14/22 10/14/22 History metformin 500 mg tablet,extended 500 mg PO DAILY Diabetes 10/14/22 10/14/22 History release 24 hr New Prescriptions to Start Prescriptions: Allergies Allergy/AdvReac Type Severity Reaction Status Date / Time No Known Allergies Allergy Verified 12/04/20 21:03 Exam Data for Last 24 hours Vital signs and Labs for Last 24 Hours: Temp Pulse Resp BP Pulse Ox 98.1 F 66 13 185/94 H 99 10/14/22 09:11 10/14/22 14:00 10/14/22 11:00 10/14/22 14:00 10/14/22 14:00 Laboratory Results - last 24 hr 10/14/22 09:20: WBC 6.8, RBC 4.38, Hgb 12.3, Hct 37.4, MCV 85.4,
--- NOTE | 2022-10-14 14:54 | PC.NURSE ---
Report provided to ANJANA Chappell. Awaiting COVID results at this time prior to transporting to inpatient.
[2022-10-14 14:57] LABS: Hemoglobin A1C 5.1 % (4.0-6.0)
--- NOTE | 2022-10-14 15:06 | PC.NURSE ---
megha called lab to check status of covid test eta about 20 minutes.
[2022-10-14 16:16] LABS: Troponin I < 0.01 ng/ml (0.00-0.034)
[2022-10-14 17:22] LABS: POC Glucose,Bedside 79 (70-110)
--- NOTE | 2022-10-14 18:29 | PC.NURSE ---
PT PLEASANT, ALERT X 4. 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 PT C/O CONSTANT LT SIDE CP, NOTHING MAKES PAIN WORSE OR BETTER, PAIN DOES NOT RADIATE. PT C/O PAIN TO LT LOWER BACK, RELIEVED BY PAIN MEDS. UA OBTAINED AND SENT TO LAB. PT STATED SHE HAD VARICOSE VEIN SURGERY ON BLE A MONTH AND HALF AGO AND HAS SINCE BECAME SOA AT TIMES. +1 NONE PITTING EDEMA ON BLE, BLE SCATTERED BRUISING FROM PREVIOUS SURGERY. PT HAS NO QUESTIONS OR CONCERNS AT THIS TIME. CB WITHIN REACH.
[2022-10-14 18:43] LABS: Microscopic, Urine URINE MICROSCOPIC (MICROSCOPIC)
[2022-10-14 18:54] LABS: Appearance,Urine CLEAR (Clear); Bilirubin,Urine Negative (Negative); Blood, Urine Negative (Negative); Color,Urine YELLOW (Yellow); Glucose,Urine (UA) Negative (Negative); Ketones,Urine Negative (Negative); Leukocyte Esterase,Urine Negative (Negative); Nitrate,Urine Negative (Negative); PH,Urine 7.5 (5.0-8.5); Protein,Urine Negative (Negative); Specific Gravity, Urine <= 1.005 (1.005-1.030); Urobilinogen,Urine 0.2 EU/dl (0.2)
[2022-10-14 19:11] LABS: WBC,Urine Occasional #/hpf (0-3)
[2022-10-14 21:17] LABS: POC Glucose,Bedside 139 (70-110)
[2022-10-15] VITALS: BP 126/68; PULSE 64; RESP 16; TEMP 36.7; O2SAT 98
[2022-10-15 04:00] VITALS: BP 152/51; PULSE 50; PULSE 57; RESP 16; TEMP 36.6; O2SAT 95; BMI 31.3
--- NOTE | 2022-10-15 04:10 | PC.NURSE ---
No issues through the night. Pt. is NPO for a cardiac cath in the am.
[2022-10-15 05:29] LABS: POC Glucose,Bedside 103 (70-110)
[2022-10-15 06:27] LABS: Basophils # 0.1 K/mm3 (0-0.2); Basophils % 0.7 % (0.1-2.0); Eosinophils # 0.1 K/mm3 (0.0-0.4); Eosinophils % 1.6 % (0.1-12.0); Hematocrit 35.7 % (37.0-47.0); Hemoglobin 11.5 g/dL (12.2-16.2); Lymphocytes # 2.8 K/mm3 (0.7-4.5); Lymphocytes % 44.6 % (10-50); Mean Corpuscular HGB Conc 32.2 g/dL (31.8-35.4); Mean Corpuscular Hemoglobin 27.6 pg (27.0-31.2); Mean Corpuscular Volume 85.9 fl (81-99); Mean Platelet Volume 7.7 fl (7.4-10.4); Monocytes # 0.3 K/mm3 (0.1-1.0); Monocytes % 4.9 % (1.7-9.3); Neutrophils # 3.1 K/mm3 (1.8-7.8); Neutrophils % 48.2 % (37.0-80.0); Platelet Count 342 K/mm3 (142-424); Red Blood Count 4.15 M/mm3 (4.20-5.40); Red Cell Distribution Width 14.2 % (11.5-17.5); White Blood Count 6.4 K/mm3 (4.8-10.8)
[2022-10-15 06:54] LABS: Chloride 103 mmol/L (98-107); Potassium 4.9 mmoL/L (3.5-5.1); Sodium 138 mmol/L (136-145)
[2022-10-15 06:56] LABS: Chol/HDL Ratio 2.7 (1-3.5); Cholesterol 192 mg/dl (140-200); HDL Cholesterol 71 mg/dl (40-60); Triglycerides 96 mg/dl (30-150); VLDL Cholesterol 19 mg/dL (0-40)
[2022-10-15 06:57] LABS: Alanine Aminotransferase 16 U/L (12-78); Albumin Level 4.1 g/dl (3.5-5.0); Albumin/Globulin Ratio 1.4 (1.1-1.8); Alkaline Phosphatase 64 U/L (38-126); Anion Gap 8.9 mEq/L (5-15); Aspartate Amino Transferase 34 U/L (14-36); Bilirubin,Total 0.4 mg/dl (0.2-1.3); Blood Urea Nitrogen 14 mg/dl (7-17); Calcium 8.9 mg/dl (8.4-10.2); Carbon Dioxide 31 mmol/L (22.0-30.0); Creatinine Clearance Estimated 68 mL/min (50-200); Estimated Glomerular Filt Rate 56 ml/min (>60); GFR (African American) 68 ML/MIN (>60); Globulin 2.9 g/dL (1.3-3.2); Glucose 95 mg/dl (74-100)
[2022-10-15 06:58] LABS: Magnesium 2.3 mg/dl (1.6-2.3)
[2022-10-15 07:17] LABS: Direct LDL Cholesterol 90.15 mg/dL (100-129)
--- NOTE | 2022-10-15 07:48 | HMH.PHAINT1 ---
Pharmacy Intervention Comments: verified with patient, takes irbesartan, no longer taking valsartan
[2022-10-15 07:55] VITALS: BP 169/89; PULSE 55; RESP 20; TEMP 36.6; O2SAT 100
--- NOTE | 2022-10-15 07:58 | PC.NURSE ---
tech note; notified nurse of high blood pressure for 0800 vital signs.
[2022-10-15 08:00] VITALS: PULSE 50
--- NOTE | 2022-10-15 09:54 | EXP.DC.SUM ---
General Admission date:: 10/14/22 Discharge date: 10/15/22 HPI HPI HPI: Ms. 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 History obtained via and kier tender (Amita KUMAR). States that she has a history of hypertension, diabetes, hyperlipidemia. She presented to the ER because of chest pain and high blood pressure. Went to her primary care doctor's office earlier today with complaint of chest pain and was sent to the ER for further evaluation. Pain predominantly in her left lateral chest with referral to her back. Occasionally complains of midsternal chest heaviness associated with some nausea and sweating. Denies any shortness of breath, cough, confusion, palpitations. Blood pressures been elevated at home. ER work-up with labs and EKG. Initial troponin negative at less than 0.01. EKG with no acute ischemic changes. Cardiology consulted while patient in the ER and recommended admission given risk factors and characteristics of chest pain. Blood pressure significantly elevated with systolic of 170 in the ER. Additional work-up for etiologies of chest pain including CTA of chest and x-ray showing no acute findings of PE or pulmonary process. After arrival to the floor, patient describes the pain in her chest is pressure-like. Has gotten worse over the past 2 to 3 days. Some component of it has been present for 4 to 6 weeks since her recent sclerotherapy in bilateral lower legs. Occasionally has some nausea, mainly today. Has been taking ibuprofen and Tylenol for pain after her sclerotherapy. Hospital Course Hospital Course Hospital Course: Tennille is a pleasant 62-year-old female with hypertension and chest pain. ER consulted medicine for admission, decision made to admit patient for serial troponins and ACS rule out.? Cardiology consulted, will see patient again in the morning and decide on possible heart cath.? Addressing blood pressure tonight with resuming home meds and addition of bisoprolol.? Problems addressed as follows: Unstable angina Hypertension Hyperlipidemia Cardiology consulted in the ER, appreciate their recommendations.? Discussed case with cardiology service. Monitored overnight for serial troponins. Echo obtained with prelim showing normal EF. Still waiting on formal read at time of discharge. Adjusted patient's blood pressure regimen with addition of bisoprolol to her irbesartan. Declined left heart cath. Would benefit from stress test. We will set this up for outpatient study. Additionally initiated Lipitor for secondary prophylaxis. Medically stable for discharge home with further work-up as an outpatient. Diabetes -A1c 5.1. Very well controlled. Continue metformin 500 mg once a day. Gabapentin nightly as needed for pain. Did not require during hospitalization. Patient stable for discharge home. Close follow-up with cardiology. [employer] Brushing [employer]ing Supervisor service used during interview on day of discharge. Cl[employer] Br[employer] Supervisor as follows: [place] # [id number] Exam Data for Last 24 hours Vital signs and Labs for Last 24 Hours: Temp Pulse Resp BP Pulse Ox 97.9 F 55 L 20 169/89 H 100 10/15/22 07:55 10/15/22 07:55 10/15/22 07:55 10/15/22 07:55 10/15/22 07:55 Laboratory Results - last 24 hr 10/14/22 09:20: Sodium 138, Potassium 3.8, Chloride 102, Anion Gap 5.0, Troponin I < 0.01 10/14/22 09:20: Hemoglobin A1c 5.1 10/14/22 10:40: D-Dimer 0.86 H 10/14/22 12:25: Troponin I < 0.01 10/14/22 13:58: SARS-CoV-2 (PCR) Not detected, Influenza A Untype (PCR) Not detected, Influenza Type B (PCR) Not detected 10/14/22 15:23: Troponin I < 0.01 10/14/22 17:05: POC Glucose 79 10/14/22 18:30: Urine Color Yellow, Urine Appearance Clear, Urine pH 7.5, Ur Specific [place] <= 1.005, Urine Protein Negative, Urine Glucose (UA) Negative, Urine Ketones Negative, Urine Blood Negative, Urine Nitrate Negative, Urine Bilirubin Negativ
--- NOTE | 2022-10-15 09:59 | EXP.CARD.PN ---
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 am labs reviewed. Exam Data for Last 24 hours Vital signs and Labs for Last 24 Hours: Temp Pulse Resp BP Pulse Ox 97.9 F 55 L 20 169/89 H 100 10/15/22 07:55 10/15/22 07:55 10/15/22 07:55 10/15/22 07:55 10/15/22 07:55 Laboratory Results - last 24 hr 10/14/22 09:20: Sodium 138, Potassium 3.8, Chloride 102, Anion Gap 5.0, Troponin I < 0.01 10/14/22 09:20: Hemoglobin A1c 5.1 10/14/22 10:40: D-Dimer 0.86 H 10/14/22 12:25: Troponin I < 0.01 10/14/22 13:58: SARS-CoV-2 (PCR) Not detected, Influenza A Untype (PCR) Not detected, Influenza Type B (PCR) Not detected 10/14/22 15:23: Troponin I < 0.01 10/14/22 17:05: POC Glucose 79 10/14/22 18:30: Urine Color Yellow, Urine Appearance Clear, Urine pH 7.5, Ur Specific [place] <= 1.005, Urine Protein Negative, Urine Glucose (UA) Negative, Urine Ketones Negative, Urine Blood Negative, Urine Nitrate Negative, Urine Bilirubin Negative, Urine Urobilinogen 0.2, Ur Leukocyte Esterase Negative, Urine RBC None, Urine WBC Occasional, Ur Squamous Epith Cells None, Urine Bacteria None 10/14/22 21:06: POC Glucose 139 H 10/15/22 05:19: POC Glucose 103 10/15/22 05:55: WBC 6.4, RBC 4.15 L, Hgb 11.5 L, Hct 35.7 L, MCV 85.9, MCH 27.6, MCHC 32.2, RDW 14.2, Plt Count 342, MPV 7.7, Neut % (Auto) 48.2, Lymph % (Auto) 44.6, Hendricks % (Auto) 4.9, Eos % (Auto) 1.6, Baso % (Auto) 0.7, Neut # (Auto) 3.1, Lymph # (Auto) 2.8, [place] # (Auto) 0.3, Eos # (Auto) 0.1, Baso # (Auto) 0.1 10/15/22 05:55: Sodium 138, Potassium 4.9 D, Chloride 103, Carbon Dioxide 31 H, Anion Gap 8.9, BUN 14, Creatinine 1.00, Estimated Creat Clear 68, Estimated GFR 56 L, Est GFR ( Amer) 68, Glucose 95, Calcium 8.9, Magnesium 2.3, Total Bilirubin 0.4, AST 34, ALT 16, Alkaline Phosphatase 64, Total Protein 7.0, Albumin 4.1, Globulin 2.9, Albumin/Globulin Ratio 1.4 10/15/22 05:55: Triglycerides 96, Cholesterol 192, LDL Cholesterol Direct 90.15 L, VLDL Cholesterol 19, HDL Cholesterol 71 H, Cholesterol/HDL Ratio 2.7 I & O for Last 24 hours: Intake & Output 10/12/22 10/13/22 10/14/22 10/15/22 23:59 23:59 23:59 23:59 Intake Total 360 / 360 Output Total 0 / 1 2 / Balance 360 / 359 -2 / -2 Weight 166 lb 4 oz 166 lb Constitutional Constitutional: no acute distress *Routine Respiratory Exam Respiratory: Present CTA bilaterally and symmetric chest movement *Routine Cardiovascular Exam Cardiovascular: Present RRR, Normal S1 and Normal S2 *Routine Abdominal Exam Abdominal: Present soft and normoactive bowel sounds; Absent tenderness *Routine Extremities Exam Extremities: Present full ROM and normal capillary refill; Absent edema *Routine Skin Exam Skin: Present intact, dry and warm Detailed Neck Exam: Thyroids Thyroid: Absent bruit Progress Note: A&P Assessment and plan (1) Unstable angina: Status: Acute (2) HTN (hypertension): Status: Acute (3) Hyperlipidemia: Status: Acute (4) Chest pain: Status: Acute (5) Diabetes: Status: Acute Assessment and plan: Unstable angina CCS 3 -Serial troponins negative -EKG negative for acute ischemic changes -Echo-normal EF, Grade one DD. -Continues to endorse chest pain.? We will proceed with left heart cath 10/15/2022.? Discussed risk versus benefits with patient and and they are agreeable. 10/15/2022:Patient states she does not want to proceed with [facility] at this time is would rather have outpatient stress test. Diastolic dysfunction grade 1 -Add Lasix 20 mg p.o. daily HTN -Continue irbestartan 300mg po daily. Add Lasix 20 mg p.o. daily. Hyperlipidemia -LDL 90, statin CV summary: Patient CV stable for discharge home. Please have patient follow-up in cardiology clinic in 1 wee
--- NOTE | 2022-10-18 16:02 | CARE MANAGER ---
Called and spoke with spouse, who states she is doing well. She had a f/u appt with PCP this morning. 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 No complaints or concerns at time of call.
== END 2022-10-15 10:58 | disposition home or self-care (01) ==
LOC: ER 13:57 → 2ND 16:36
PROVIDERS: Admitting Provider Internal Medicine Adolescent Medicine; Emergency Provider Emergency Medicine; PCP Nurse Practitioner Family; Visit Provider Internal Medicine Adolescent Medicine
DX: I25.110 Atherosclerotic heart disease of native coronary artery with unstable angina pectoris (principal); I10 Essential (primary) hypertension; E78.5 Hyperlipidemia, unspecified; R07.9 Chest pain, unspecified; E11.9 Type 2 diabetes mellitus without complications; Z79.84 Long term (current) use of oral hypoglycemic drugs; Z79.899 Other long term (current) drug therapy
CPT/HCPCS: 36415; 71046; 71275; 80048; 80053; 80061; 81001; 82962; 83036; 83735; 84484; 85025; 85378; 93005; 93306; 99285; C9803; G0378; Q9967; U0003; U0005

== ENCOUNTER 2023-10-13 08:29 | Outpatient (CLI) | payer OTHER, SELFPAY ==
--- NOTE | 2023-10-13 08:42 | US_ITS ---
FINAL REPORT CLINICAL HISTORY: UPPER ABD PAIN FINDINGS: Sonographic images of the abdomen were obtained. The liver has an unremarkable appearance with normal echogenicity. The gallbladder is surgically absent. The common hepatic duct measures 6 mm. Limited images of the pancreas are unremarkable. The spleen size is normal. The right kidney measures 9.8 cm in length. There is a 4 mm stone in the lower pole of the right kidney. The left kidney measures 9.6 cm in length. There is normal renal echogenicity. There is no evidence of hydronephrosis. The aorta has an unremarkable appearance. Limited images of the inferior vena cava are unremarkable. IMPRESSION: Right renal stone. Reviewed, Interpreted and Dictated by Cirilo Rubalcava III, MD Transcribed by Obdulia Grier Authenticated and [facility]
== END 2023-10-13 23:59 ==
LOC: RAD 08:30
PROVIDERS: PCP Nurse Practitioner Family; Visit Provider Nurse Practitioner Family
DX: R10.10 Upper abdominal pain, unspecified (principal)
CPT/HCPCS: 76700

== ENCOUNTER 2023-11-08 08:46 | Outpatient (CLI) | payer OTHER, SELFPAY ==
--- NOTE | 2023-11-08 08:54 | XR_ITS ---
FINAL REPORT CLINICAL HISTORY: SCREENING COMPARISON: None FINDINGS: Using L1-4, the bone mineral density of the spine is 1.074 g/cm2, corresponding to T-score of 0.2 which is within normal limits. Using the left hip, the bone mineral density of the femoral neck is 0.757 g/cm2, corresponding to a T-score of -0.8 which is within normal limits. Using the right hip, the bone mineral density of the femoral neck is 0.919 g/cm2, corresponding to a T-score of -0.2 which is within normal limits. FRAX not reported because all T-scores at or above -1.0. NOTE: T-score: Standard deviation compared with peak bone mass of young adult mean. *Following the recommendations of the International Society of Bone densitometry, classification of hip BMD is based on the lower of two T-scores; total hip or femoral neck. IMPRESSION: Normal bone mineral density of the lumbar spine and hips. Reviewed, Interpreted and Dictated by Cirilo Rubalcava III, MD Transcribed by Iva Aparicio Authenticated and [facility]
== END 2023-11-08 23:59 ==
LOC: RAD 08:47
PROVIDERS: PCP Nurse Practitioner Family; Visit Provider Nurse Practitioner Family
DX: Z13.820 Encounter for screening for osteoporosis (principal)
CPT/HCPCS: 77080

== ENCOUNTER 2024-08-06 13:25 | Outpatient (CLI) | payer MEDICARE, SELFPAY ==
--- NOTE | 2024-08-06 13:34 | CT_ITS ---
FINAL REPORT TECHNIQUE: Thin section axial images were obtained from skull base to vertex without contrast. Coronal and sagittal reconstruction images were obtained from the axial data. Exam was performed using dose reduction technique. CLINICAL HISTORY: PT HAD A FALL COMPARISON: 12/25/2018 FINDINGS: There is no mass effect or midline shift. There is no hydrocephalus. There is no intracranial hemorrhage. The posterior fossa is without acute abnormality. The basilar cisterns are preserved. The soft tissues are without acute abnormality. No acute osseous abnormality is identified. IMPRESSION: No acute intracranial abnormality. Reviewed, Interpreted and Dictated by Renetta Monsalve MD Transcribed by Danna Rice Authenticated and [facility]
== END 2024-08-06 23:59 | disposition home or self-care (01) ==
LOC: RAD 13:28
PROVIDERS: PCP Nurse Practitioner Family; Visit Provider Nurse Practitioner Family
DX: Z91.81 History of falling (principal)
CPT/HCPCS: 70450

== ENCOUNTER 2024-08-22 10:54 | Outpatient (CLI) | payer MEDICARE, SELFPAY ==
--- NOTE | 2024-08-22 11:05 | XR_ITS ---
FINAL REPORT CLINICAL HISTORY: T AND C SPINE DUE TO A FALL PAIN COMPARISON: None FINDINGS: CERVICAL SPINE No fracture is present. Alignment is normal. No prevertebral soft tissue swelling is seen. Mild diffuse degenerative disc disease. IMPRESSION: Degenerative changes without acute process. THORACIC SPINE No fracture subluxation. No prevertebral soft tissue swelling is noted. There is mild dextroscoliosis. There is mild diffuse degenerative disc disease. IMPRESSION: Degenerative changes without acute process. Reviewed, Interpreted and Dictated by Roland Louie MD Transcribed by Iva Aparicio Authenticated and [facility]
== END 2024-08-22 23:59 | disposition home or self-care (01) ==
LOC: RAD 10:57
PROVIDERS: PCP Nurse Practitioner Family; Visit Provider Nurse Practitioner Family
DX: M54.2 Cervicalgia (principal); M54.6 Pain in thoracic spine; W10.1XXA Fall (on)(from) sidewalk curb, initial encounter
CPT/HCPCS: 72084